=== PATIENT | female | born 1980 | race Caucasian/White ===

== ENCOUNTER 2024-07-26 16:28 | Inpatient (IN) | payer OTHER, SELFPAY ==
--- OUTSIDE RECORDS SUMMARY | 2024-07-26 16:34 | XMS_ITS | Encounter Summary ---
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 Name Role Phone Physician, No Pcp Primary Care Provider Unavaila ble Reason for Visit * Reason Comments Suicidal Paranoid, additory h allucinations, si/snorted 10 bags of fentanyl Encounter Details Date Type Department Care Team (Late st Contact Info) Description 07/25/2024 8:03 PM EST - 07/26/2024 4:05 PM EST Emergency [facility] Emergency [address] [place] [id number] Ayaz Posada MD [address] [place] [address] Polysubstance dependence including opioid type drug without complication, episodic abuse (CMS/HCC) (Primary Dx); Hopelessness; Housing insecurity; Hypokalemia Discharge Disposition: Another Health Care Institution Not Defined Social History Tobacco Use Types Packs/Day Years Used Date Smoking Tobacco: Never Assessed Sex and Gender Information Value Date Recorded Sex Assigned at Female 07/25/2024 8:22 PM EST Gender Identity Female 07/25/2024 8:22 PM EST Sexual Orientation Straight 07/25/2024 8: 22 PM EST Job Start Date Occupation Industry Not on file Not on file Not on file documented as of this encounter Last Filed Vital Signs Vital Sign Reading Time Taken Comments Blood Pressure 117/79 07/26/2024 4:01 PM EST Pulse 65 07/26/2024 4:01 PM EST Temperature 37.1 ??C (98.7 ??F) 07/26/2024 4:01 PM ES T Respiratory Rate 18 07/26/2024 4:01 PM EST Oxygen Saturation 100% 07/26/2024 4:01 PM EST Inhaled Oxygen Concentration - - Weight 63.5 kg (140 lb) 07/25/2024 8:06 PM EST Height 160 cm (5' 2.99 ) 07/25/2024 8:06 PM EST Body Mass Index 24.81 07/25/2024 8:06 PM EST documented in this encounter Functional Status Functional Status Response Date of Assess ment Are you deaf or do you have serious difficulty h earing? No 07/25/2024 Are you blind or do you have serious difficulty seeing, even when wearing glasses? No 07/25/2024 Do you have serious difficul ty walking or climbing stairs? No 07/25/2024 Do you have serious difficulty dressing or bathi ng? No 07/25/2024 Because of a physical, menta l, or emotional condition, do you have serious difficulty doing errands alone such as visiting the doctor? No 07/25/2024 Cognitive Status Response Date of Assessm ent Because of a physical, menta l, or emotional condition, do you have serious difficulty concentrating, remembering, or making decisions? (5 years old or older) No 07/25/2024 documented as of this encounter Medications at Time of Discharge Medication Sig Dispensed Refills Start Date End Date amLODIPine (NORVASC) 5 mg tablet Take 1 tablet (5 mg total) by mouth daily. 09/08/2022 cloNIDine (CATAPRES) 0.1 mg tablet Take 1 tablet (0.1 mg total) by mouth 3 (three) times a day if needed (anxiety). 07/12/2024 FLUoxetine (PROzac) 20 mg tablet 07/22/2024 hydrOXYzine HCL (ATARAX) 50 mg tablet Take 1 tablet (50 mg total) by mouth 3 (three) times a day. 06/29/2024 ibuprofen (ADVIL,MOTRIN) 600 mg tablet Take 1 tablet (600 mg total) by mouth every 6 hours as needed. 01/08/2021 methadone (DOLOPHINE) 10 mg tabletIndications:opioi d use disorder Take 120 mg by mouth 1 (one) time each day at the same time. Max Daily Amount: 120 mg polyethylene glycol (GoLYTELY) 236-22.74-6.74 -5.86 gram solution Drink 8 ounces every 20 minutes until you have a bowel movement then stop 4000 mL 05/30/2024 psyllium (METAMUCIL) 3.4 gram packet Take 1 packet by mouth 1 (one) time each day. 30 packet 05/30/2024 05/30/2025 traZODone (DESYREL) 50 mg tablet Take 1 tablet (50 mg total) by mouth at bedtime as needed for sleep. 50 to 100 mg prn 07/20/2024 documented as of this encounter Discharge Disposition Disposition Code Departure Means Destination Comment s Another Health Care Institution Not Defined documented in this encounter Progress Notes * Dania Knapp RN - 07/26/2024 12:40 PM EST Per - Please no visitors. * Jace Long - 07/26/2024 12:16 PM EST Patient has been accepted to [facility] for today. [facility] will call for [id number]. Patient is going to [facility] Accepting doctor is Olya Wong * Sd Benoit RN - 07/26/2024 9:17 AM EST Call to [facility] Methadone clinic to confirm methadone dosing. Spoke with Bindu DELA CRUZ who reports pt's last dose was yesterday 07/25/24 of 120mg methadone. ED provider notified. Sd Benoit RN 07/26/2418 * Jojo Ledbetter RN - 07/25/2024 8:10 PM EST [facility]- pt from [facility] office with section 12 for passive SI-snorted 10 bags of fentanyl. Ifsomething happens it happens Poor sleep and appetite. documented in this encounter Consult Notes * Alan Chamberlain - 07/25/2024 9:07 PM EST The patient is assessed in the community by N and found to be appropriate for inpatient, Bed-Search. Assessment will follow upon completion. documented in this encounter Plan of Treatment Not on file documented as of this encounter Procedures Procedure Name Priority Date/Time Associated Diagnosis Comments CBC WITH AUTO DIFFERENTIAL STAT 07/26/2024 1:36 PM EST CBC AND DIFFERENTIAL STAT 07/26/2024 1:36 PM EST BASIC METABOLIC PANEL STAT 07/26/2024 1:36 PM EST ECG 12-LEAD STAT 07/26/2024 1:17 PM EST DRUG ABUSE SCREEN 8A PANEL, URINE STAT 07/26/2024 12:20 AM EST BUPRENORPHINE SCREEN, URINE STAT 07/26/2024 12:20 AM EST METHADONE SCREEN, URINE STAT 07/26/2024 12:20 AM EST PHENCYCLIDINE, URINE STAT 07/26/2024 12:20 AM EST CBC WITH AUTO DIFFERENTIAL STAT 07/25/2024 8:52 PM EST CBC AND DIFFERENTIAL STAT 07/25/2024 8:52 PM EST MAGNESIUM Add-On 07/25/2024 8:52 PM EST ETHANOL STAT 07/25/2024 8:52 PM EST ACETAMINOPHEN LEVEL STAT 07/25/2024 8 :52 PM EST SALICYLATE LEVEL STAT 07/25/2024 8:52 PM EST COMPREHENSIVE METABOLIC PANEL STAT 07/25/2024 8:52 PM EST documented in this encounter Results * (ABNORMAL) Basic metabolic panel (07/26/2024 1:36 PM EST) Sodium 135 133 - 145 mmol/L LAB CHEMISTRY METHOD 07/26/2024 2:33 PM [facility] Potassium 3.9 3.5 - 5.5 mmol/L LAB CHEMISTRY METHOD 07/26/2024 2:33 PM [facility] Chloride 103 96 - 110 mmol/L LAB CHEMISTRY METHOD 07/26/2024 2:33 PM [facility] CO2 24 21 - 32 mmol/L LAB CHEMISTRY METHOD 07/26/2024 2:33 PM [facility] Anion Gap 8 3 - 11 LAB CHEMISTRY METHOD 07/26/2024 2:33 PM [facility] Glucose 145(H) 70 - 100 mg/dL LAB CHEMISTRY METHOD 07/26/2024 2:33 PM [facility] BUN 14 5 - 25 mg/dL LAB CHEMISTRY METHOD 07/26/2024 2:33 PM [facility] Creatinine 0.72 0.50 - 1.10 mg/dL LAB CHEMISTRY METHOD 07/26/2024 2:33 PM [facility] eGFR 108 >=60 mL/min/1. 73m2 LAB CHEMISTRY METHOD 07/26/2024 2:33 PM [facility] Comment:Calculation based on the??Chronic Kidney Disease Epidemiology Collaboration (CKD-EPI) equation refit??without adjustment for race. BUN/Creatinine Ratio 19.4 LAB CHEMISTRY METHOD 07/26/2024 2:33 PM [facility] Calcium 9.6 8.5 - 10.5 mg/dL LAB CHEMISTRY METHOD 07/26/2024 2:33 PM [facility] Blood Venous blood specimen / Unknown Venipuncture / Unknown 07/26/2024 1:36 PM EST 07/26/2024 1:55 PM EST Ayaz Posada MD LAB BLOOD ORDERABLES [facility] [address] [place] [address], * (ABNORMAL) CBC auto differential (07/26/2024 1:36 PM EST) WBC 7.7 4.8 - 10.8 K/mcL LAB HEMETOLOGY METHOD 07/26/2024 2:[address] [facility] RBC 4.40 3.80 - 4.80 M/mcL LAB HEMETOLOGY METHOD 07/26/2024 2:[address] [facility] Hemoglobin 13.2 11.5 - 16.0 g/dL LAB HEMETOLOGY METHOD 07/26/2024 2:12 PM [facility] Hematocrit 37.9 35.0 - 47.0 % LAB HEMETOLOGY METHOD 07/26/2024 2:[address] [facility] MCV 85.9 79.0 - 98.0 FL LAB HEMETOLOGY METHOD 07/26/2024 2:[address] [facility] MCH 29.9 27.0 - 32.0 pcg LAB HEMETOLOGY METHOD 07/26/2024 2:[address] [facility] MCHC 34.8 32.0 - 37.0 g/dL LAB HEMETOLOGY METHOD 07/26/2024 2:[address] [facility] RDW 13.2 11.0 - 15.0 % LAB HEMETOLOGY METHOD 07/26/2024 2:12 PM [facility] Platelets 361 130 - 400 K/mcL LAB HEMETOLOGY METHOD 07/26/2024 2:12 PM [facility] MPV 9.4 7.0 - 11.0 FL LAB HEMETOLOGY METHOD 07/26/2024 2:12 PM [facility] NRBC 0.0 <1.0 % LAB HEMETOLOGY METHOD 07/26/2024 2:12 PM [facility] NRBC Absolute 0.00 <0.10 K/mcL LAB HEMETOLOGY METHOD 07/26/2024 2:12 PM [facility] Neutrophils Relative 54.1 % LAB HEMETOLOGY METHOD 07/26/2024 2:12 PM [facility] Lymphocytes Relative 34.7 % LAB HEMETOLOGY METHOD 07/26/2024 2:12 PM [facility] Monocytes Relative 8.3 % LAB HEMETOLOGY METHOD 07/26/2024 2:12 PM [facility] Eosinophils Relative 1.8 % LAB HEMETOLOGY METHOD 07/26/2024 2:12 PM [facility] Basophils Relative 0.4 % LAB HEMETOLOGY METHOD 07/26/2024 2:12 PM [facility] Immature Granulocytes Relative 0.7 % LAB HEMETOLOGY METHOD 07/26/2024 2:12 PM [facility] Neutrophils Absolute 4.16 1.50 - 7.00 K/mcL LAB HEMETOLOGY METHOD 07/26/2024 2:12 PM [facility] Lymphocytes Absolute 2.67 1.00 - 5.00 K/mcL LAB HEMETOLOGY METHOD 07/26/2024 2:12 PM [facility] Monocytes Absolute 0.64 0.20 - 1.00 K/mcL LAB HEMETOLOGY METHOD 07/26/2024 2:12 PM [facility] Eosinophils Absolute 0.14 0.00 - 0.50 K/mcL LAB HEMETOLOGY METHOD 07/26/2024 2:12 PM [facility] Basophils Absolute 0.03 0.00 - 0.20 K/mcL LAB HEMETOLOGY METHOD 07/26/2024 2:12 PM [facility] Immature Granulocytes Absolute 0.05(H) 0.00 - 0.03 K/[facility] LAB HEMETOLOGY METHOD 07/26/2024 2:[address] [facility] Blood Venous blood specimen / Unknown Venipuncture / Unknown 07/26/2024 1:36 PM EST 07/26/2024 1:55 PM EST Ayaz Posada MD LAB BLOOD ORDERABLES Performing Organization Address [facility] Co de Phone Number [facility] [address] [place] [address], * ECG 12 lead (07/26/2024 1:17 PM EST) Ventricular Rate ECG 67 BPM GEMUSE Atrial Rate 67 BPM GEMUSE P-R Interval 140 ms GEMUSE QRS Duration 76 ms GEMUSE Q-T Interval 416 ms GEMUSE QTc 439 ms GEMUSE P Wave [place] 41 degrees GEMUSE R [place] 62 degrees GEMUSE T [place] 37 degrees GEMUSE ECG Interpretation Normal sinus rhythm Possible Left atrial enlargement Borderline ECG When compared with ECG of 15-JUL-2021 23:18, No significant change was found Confirmed by Trenton ROBERTS JAMES ([id number]) on 07/26/2024 2:40:22 PM GEMUSE 07/26/2024 1:17 PM EST 07/26/2024 2:40 PM EST Ayaz Posada MD ECG ORDERABLES Performing Organization Address [facility] de Phone Number GEMUSE * (ABNORMAL) Methadone, urine (07/26/2024 12:20 AM EST) Methadone Screen, Urine Positive (A) Negative LAB CHEMISTRY METHOD 07/26/2024 1:[address] [facility] Comment: Assay cutoff 300 ng/mL Semi-quantitative assay for screening purposes only. Unconfirmed screening result should not be used for non-medical purposes. *ALTERNATE METHOD CONFIRMATION DONE UPON REQUEST ONLY* Urine Urine specimen obtained by clean catch procedure / Unknown Non-blood Collection / Unknown 07/26/2024 12:20 AM EST 07/26/2024 12:28 AM EST Ayaz Posada MD LAB URINE ORDERABLES Performing Organization Address [facility]/ZIP Co de Phone Number [facility] [address] [place] [address], [place] [phone] * Phencyclidine, urine (07/26/2024 12:20 AM EST) PCP Scrn, Ur Negative Negative LAB CHEMISTRY METHOD 07/26/2024 1:[address] [facility] Comment: Assay cutoff 25 ng/mL Semi-quantitative assay for screening purposes only. Unconfirmed screening result should not be used for non-medical purposes. *ALTERNATE METHOD CONFIRMATION DONE UPON REQUEST ONLY* Urine Urine specimen obtained by clean catch procedure / Unknown Non-blood Collection / Unknown 07/26/2024 12:20 AM EST 07/26/2024 12:28 AM EST Ayaz Posada MD LAB URINE ORDERABLES Performing Organization Address [facility]/ZIP Co de Phone Number [facility] [address] [place] [address], [place] [phone] * Buprenorphine screen, urine (07/26/2024 12:20 AM EST) Buprenorphine Screen Urine Negative Negative LAB CHEMISTRY METHOD 07/26/2024 1:[address] [facility] Urine Urine specimen obtained by clean catch procedure / Unknown Non-blood Collection / Unknown 07/26/2024 12:20 AM EST 07/26/2024 12:[address] [facility] - 07/26/2024 1:07 AM EST Assay cutoff 5 ng/mL Semi-quantitative assay for screening purposes only. Unconfirmed screening result should not be used for non-medical purposes. *ALTERNATE METHOD CONFIRMATION DONE UPON REQUEST ONLY* Ayaz Posada MD LAB URINE ORDERABLES [facility] [address] [place] [address], * (ABNORMAL) Drug abuse screen 8a panel, urine (07/26/2024 12:20 AM EST) Amphetamine Screen, Ur Negative Negative LAB CHEMISTRY METHOD 1:20 AM [facility] Comment:Certain OTC medicati ons containing ephedrine, phenylephrine, pseudoephedrine and phenylpropanolamine can cause false positive results. Barbiturate Screen, Ur Negative Negative LAB CHEMISTRY METHOD 1:20 AM [facility] Benzodiazepine Screen, Ur Negative Negative LAB CHEMISTRY METHOD 1:20 AM [facility] Cocaine Screen, Ur Positive(A ) Negative LAB CHEMISTRY METHOD 1:20 AM [facility] Opiate Screen, Ur Positive(A ) Negative LAB CHEMISTRY METHOD 1:20 AM [facility] Cannabinoid (THC) Screen, Ur Positive(A ) Negative LAB CHEMISTRY METHOD 1:20 AM [facility] Comment:Specimens from patie nts taking pantoprazole sodium (Protonix) have been shown to produce false positive results. Oxycodone Screen, Ur Negative Negative LAB CHEMISTRY METHOD 1:20 AM [facility] Fentanyl, Ur Positive(A ) Negative LAB CHEMISTRY METHOD 1:20 AM [facility] Urine Urine specimen obtained by clean catch procedure / Unknown Non-blood Collection / Unknown 07/26/2024 12:20 AM EST 07/26/2024 12:28 AM EST [facility] - 07/26/2024 1:20 AM EST Assay cutoffs: Amphetamines ? 1000 ng/mL Barbiturates ?200 ng/mL Benzodiazepines ?? 200 ng/mL Cocaine ? 300 ng/mL Fentanyl ?1 ng/mL Opiates ? 300 ng/mL Oxycodone ? 100 ng/mL THC ?50 ng/mL Semi-quantitative assay for screening purposes only. Unconfirmed screening result should not be used for non-medical purposes. *ALTERNATE METHOD CONFIRMATION DONE UPON REQUEST ONLY* Ayaz Posada MD LAB URINE ORDERABLES Performing Organization Address [facility]/ZIP Co de Phone Number [facility] [address] [place] [address], * Magnesium (07/25/2024 8:52 PM EST) [facility] Magnesium 2.0 1.9 - 2.6 mg/dL LAB CHEMISTRY METHOD 07/25/2024 11:[address] [facility] Blood Venous blood specimen / Unknown Venipuncture / Unknown 07/25/2024 8:52 PM EST 07/25/2024 8:59 PM EST Bubba CAPELLAN LAB BLOOD ORDERAB LES Performing Organization Address [facility]/ZIP Co de Phone Number [facility] [address] [place] [address], * (ABNORMAL) CBC auto differential (07/25/2024 8:52 PM EST) WBC 6.7 4.8 - 10.8 K/mcL LAB HEMETOLOGY METHOD 07/25/2024 9:[address] [facility] RBC 3.70(L) 3.80 - 4.80 M/mcL LAB HEMETOLOGY METHOD 07/25/2024 9:[address] [facility] Hemoglobin 11.3(L) 11.5 - 16.0 g/dL LAB HEMETOLOGY METHOD 07/25/2024 9:04 PM [facility] Hematocrit 32.3(L) 35.0 - 47.0 % LAB HEMETOLOGY METHOD 07/25/2024 9:04 PM [facility] MCV 86.6 79.0 - 98.0 FL LAB HEMETOLOGY METHOD 07/25/2024 9:04 PM [facility] MCH 30.3 27.0 - 32.0 pcg LAB HEMETOLOGY METHOD 07/25/2024 9:04 PM [facility] MCHC 35.0 32.0 - 37.0 g/dL LAB HEMETOLOGY METHOD 07/25/2024 9:04 PM [facility] RDW 13.2 11.0 - 15.0 % LAB HEMETOLOGY METHOD 07/25/2024 9:04 PM [facility] Platelets 323 130 - 400 K/mcL LAB HEMETOLOGY METHOD 07/25/2024 9:04 PM [facility] MPV 9.2 7.0 - 11.0 FL LAB HEMETOLOGY METHOD 07/25/2024 9:04 PM [facility] NRBC 0.0 <1.0 % LAB HEMETOLOGY METHOD 07/25/2024 9:04 PM [facility] NRBC Absolute 0.00 <0.10 K/mcL LAB HEMETOLOGY METHOD 07/25/2024 9:04 PM [facility] Neutrophils Relative 39.3 % LAB HEMETOLOGY METHOD 07/25/2024 9:04 PM [facility] Lymphocytes Relative 47.7 % LAB HEMETOLOGY METHOD 07/25/2024 9:04 PM [facility] Monocytes Relative 9.5 % LAB HEMETOLOGY METHOD 07/25/2024 9:04 PM [facility] Eosinophils Relative 2.8 % LAB HEMETOLOGY METHOD 07/25/2024 9:[address] [facility] Basophils Relative 0.4 % LAB HEMETOLOGY METHOD 07/25/2024 9:04 PM [facility] Immature Granulocytes Relative 0.3 % LAB HEMETOLOGY METHOD 07/25/2024 9:04 PM [facility] Neutrophils Absolute 2.64 1.50 - 7.00 K/mcL LAB HEMETOLOGY METHOD 07/25/2024 9:[address] [facility] Lymphocytes Absolute 3.21 1.00 - 5.00 K/mcL LAB HEMETOLOGY METHOD 07/25/2024 9:04 PM [facility] Monocytes Absolute 0.64 0.20 - 1.00 K/mcL LAB HEMETOLOGY METHOD 07/25/2024 9:04 PM [facility] Eosinophils Absolute 0.19 0.00 - 0.50 K/mcL LAB HEMETOLOGY METHOD 07/25/2024 9:[address] [facility] Basophils Absolute 0.03 0.00 - 0.20 K/mcL LAB HEMETOLOGY METHOD 07/25/2024 9:04 PM [facility] Immature Granulocytes Absolute 0.02 0.00 - 0.03 K/mcL LAB HEMETOLOGY METHOD 07/25/2024 9:04 PM [facility] Blood Venous blood specimen / Unknown Venipuncture / Unknown 07/25/2024 8:52 PM EST 07/25/2024 8:59 PM EST Ayaz Posada MD LAB BLOOD ORDERABLES [facility] [address] [place] [address], * (ABNORMAL) Salicylate level (07/25/2024 8:52 PM EST) Salicylate Level <1.7(L) 2.0 - 29.0 mg/dL LAB CHEMISTRY METHOD 07/25/2024 9:[address] [facility] Blood Venous blood specimen / Unknown Venipuncture / Unknown 07/25/2024 8:52 PM EST 07/25/2024 8:59 PM EST Ayaz Posada MD LAB BLOOD ORDERABLES Performing Organization Address City/[facility]/ZIP Co de Phone Number [facility] [address] [place] [address], [place] [phone] * (ABNORMAL) Acetaminophen level (07/25/2024 8:52 PM EST) Acetaminophen Level 8.9(L) 10.0 - 30.0 mcg/mL LAB CHEMISTRY METHOD 07/25/2024 9:[address] [facility] Blood Venous blood specimen / Unknown Venipuncture / Unknown 07/25/2024 8:52 PM EST 07/25/2024 8:59 PM EST Ayaz Posada MD LAB BLOOD ORDERABLES Performing Organization Address City/[facility]/ZIP Co de Phone Number [facility] [address] [place] [address], [place] [phone] * Ethanol (07/25/2024 8:52 PM EST) Ethanol Level 4 0 - 10 mg/dL LAB CHEMISTRY METHOD 07/25/2024 9:[address] [facility] Blood Venous blood specimen / Unknown Venipuncture / Unknown 07/25/2024 8:52 PM EST 07/25/2024 8:59 PM EST Ayaz Posada MD LAB BLOOD ORDERABLES Performing Organization Address City/[facility]/ZIP Co de Phone Number [facility] [address] [place] [address], [place] [phone] * (ABNORMAL) Comprehensive metabolic panel (07/25/2024 8:52 PM EST) [facility] Signature Sodium 138 133 - 145 mmol/L LAB CHEMISTRY METHOD 07/25/2024 9:46 PM [facility] Potassium 3.0(L) 3.5 - 5.5 mmol/L LAB CHEMISTRY METHOD 07/25/2024 9:46 PM [facility] Chloride 107 96 - 110 mmol/L LAB CHEMISTRY METHOD 07/25/2024 9:46 PM [facility] CO2 24 21 - 32 mmol/L LAB CHEMISTRY METHOD 07/25/2024 9:46 PM [facility] Anion Gap 7 3 - 11 LAB CHEMISTRY METHOD 07/25/2024 9:46 PM [facility] Glucose 91 70 - 100 mg/dL LAB CHEMISTRY METHOD 07/25/2024 9:46 PM [facility] BUN 12 5 - 25 mg/dL LAB CHEMISTRY METHOD 07/25/2024 9:46 PM [facility] Creatinine 0.59 0.50 - 1.10 mg/dL LAB CHEMISTRY METHOD 07/25/2024 9:46 PM [facility] eGFR 116 >=60 mL/min/1. 73m2 LAB CHEMISTRY METHOD 07/25/2024 9:46 PM [facility] Comment:Calculation based on the??Chronic Kidney Disease Epidemiology Collaboration (CKD-EPI) equation refit??without adjustment for race. BUN/Creatinine Ratio 20.3 LAB CHEMISTRY METHOD 07/25/2024 9:46 PM [facility] Calcium 8.3(L) 8.5 - 10.5 mg/dL LAB CHEMISTRY METHOD 07/25/2024 9:46 PM [facility] AST (SGOT) 15 10 - 42 unit/L LAB CHEMISTRY METHOD 07/25/2024 9:46 PM [facility] ALT (SGPT) 18 10 - 60 unit/L LAB CHEMISTRY METHOD 07/25/2024 9:[address] [facility] Alkaline Phosphatase 94 42 - 121 unit/L LAB CHEMISTRY METHOD 07/25/2024 9:[address] [facility] Total Protein 6.7 6.0 - 8.0 g/dL LAB CHEMISTRY METHOD 07/25/2024 9:[address] [facility] Albumin 3.8 3.2 - 5.0 g/dL LAB CHEMISTRY METHOD 07/25/2024 9:[address] [facility] Total Bilirubin 0.3 0.0 - 1.4 mg/dL LAB CHEMISTRY METHOD 07/25/2024 9:46 PM [facility] Blood Venous blood specimen / Unknown Venipuncture / Unknown 07/25/2024 8:52 PM EST 07/25/2024 8:59 PM EST Ayaz Posada MD LAB BLOOD ORDERABLES [facility] [address] [place] [address], documented in this encounter Visit Diagnoses Diagnosis Polysubstance dependence including opioid type drug without complication, episodic abuse (CMS/HCC)- Primary Hopelessness Housing insecurity Hypokalemia Hypopotassemia documented in this encounter Administered Medications Active Administered Medications - up to 3 most recent administrations Medication Order MAR Action Action Date Dose Rate Site amLODIPine (NORVASC) tablet 5 mg 5 mg, oral, Daily, First dose on Thu07/26/24 at 1035 Given 07/26/2024 11:00 AM EST 5 mg cloNIDine (CATAPRES) tablet 0.1 mg 0.1 mg, oral, Every 8 hours scheduled, First dose on Thu07/26/24 at 1035 Given 07/26/2024 11:20 AM EST 0.1 mg FLUoxetine (PROzac) capsule 20 mg 20 mg, oral, Daily, First dose on Thu07/26/24 at 1035 Given 07/26/2024 11:20 AM EST 20 mg hydrOXYzine pamoate (VISTARIL) capsule 25 mg 25 mg, oral, 3 times daily, First dose on Thu07/26/24 at 1035 Given 07/26/2024 2:02 PM EST 25 mg Given 07/26/2024 11:20 AM EST 25 mg potassium chloride (KLOR-CON M20) CR tablet 20 mEq 20 mEq, oral, 2 times daily, First dose on Thu07/26/24 at 0900, For 3 days, Tablet may be swallowed whole (do not crush/chew/suck on) OR broken in half and each half swallowed separately OR dissolved (whole tablet) in ~4 ounces of water (allow ~2 minutes to dissolve, stir well and administer immediately). Given 07/26/2024 8:31 AM EST 20 mEq Inactive Administered Medications - up to 3 most recent administrations Medication Order MAR Action Action Date Dose Rate Site acetaminophen (TYLENOL) tablet 1,000 mg 1,000 mg, oral, Once, On Thu07/26/24 at 0808, For 1 dose, PRN for Pain or Fever Given 07/26/2024 8:30 AM EST 1,000 mg amLODIPine (NORVASC) tablet 5 mg 5 mg, oral, Once, On Thu07/26/24 at 0457, For 1 dose Given 07/26/2024 5:00 AM EST 5 mg cloNIDine (CATAPRES) tablet 0.1 mg 0.1 mg, oral, Once, On Thu07/26/24 at 0457, For 1 dose Given 07/26/2024 5:01 AM EST 0.1 mg ibuprofen (ADVIL,MOTRIN) tablet 600 mg 600 mg, oral, Once, On Thu07/26/24 at 0437, For 1 dose, Administer with food or milk to decrease GI upset Given 07/26/2024 4:41 AM EST 600 mg methadone (METHADOSE) dispersible tablet 120 mg 120 mg, oral, Once, On Thu07/26/24 at 0958, For 1 dose, Disperse total dose in ~120 mL of water, orange juice, or other acidic fruit beverage prior to administration; if insoluble excipients remain and do not entirely dissolve, add a small amount of liquid to cup and administer remaining mixture. Do not chew or swallow tablet before dispersing in liquid. Given 07/26/2024 10:07 AM EST 120 mg ondansetron ODT (ZOFRAN-ODT) disintegrating tablet 4 mg 4 mg, oral, Once, On Thu07/25/24 at 2340, For 1 dose Given 07/25/2024 11:49 PM EST 4 mg potassium chloride (KLOR-CON M20) CR tablet 40 mEq 40 mEq, oral, Once, On Thu07/25/24 at 2335, For 1 dose, Tablet may be swallowed whole (do not crush/chew/suck on) OR broken in half and each half swallowed separately OR dissolved (whole tablet) in ~4 ounces of water (allow ~2 minutes to dissolve, stir well and administer immediately). Given 07/25/2024 11:49 PM EST 40 mEq documented in this encounter Historical Medications * This list may reflect changes made after this encounter. Medication Sig Dispensed Refills Start Date End Date traZODone (DESYREL) 50 mg tablet Take 1 tablet (50 mg total) by mouth at bedtime as needed for sleep. 50 to 100 mg prn 07/20/2024 ibuprofen (ADVIL,MOTRIN) 600 mg tablet Take 1 tablet (600 mg total) by mouth every 6 hours as needed. 01/08/2021 hydrOXYzine HCL (ATARAX) 50 mg tablet Take 1 tablet (50 mg total) by mouth 3 (three) times a day. 06/29/2024 cloNIDine (CATAPRES) 0.1 mg tablet Take 1 tablet (0.1 mg total) by mouth 3 (three) times a day if needed (anxiety). 07/12/2024 amLODIPine (NORVASC) 5 mg tablet Take 1 tablet (5 mg total) by mouth daily. 09/08/2022 FLUoxetine (PROzac) 20 mg tablet 07/22/2024 methadone (DOLOPHINE) 10 mg tabletIndications:opioid use disorder Take 120 mg by mouth 1 (one) time each day at the same time. Max Daily Amount: 120 mg added in this encounter Active and Recently Administered Medications Times are shown in EST. Scheduled Medication Order 07/24/2024 07/25/2024 07/26/2024 acetaminophen (TYLENOL) tablet 1,000 mg (COMPLETED) 1,000 mg, oral, Once, On Thu07/26/24 at 0808, For 1 dose, PRN for Pain or Fever 0830 (Given - Provid er: Sd Benoit RN) amLODIPine (NORVASC) tablet 5 mg (COMPLETED) 5 mg, oral, Once, On Thu07/26/24 at 0457, For 1 dose 0500 (Given - Provid er: Jojo Ledbetter RN) amLODIPine (NORVASC) tablet 5 mg 5 mg, oral, Daily, First dose on Thu07/26/24 at 1035 1100 (Given - Provid er: Dania Knapp RN) cloNIDine (CATAPRES) tablet 0.1 mg (COMPLETED) 0.1 mg, oral, Once, On Thu07/26/24 at 0457, For 1 dose 0501 (Given - Provid er: Jojo Ledbetter RN) cloNIDine (CATAPRES) tablet 0.1 mg 0.1 mg, oral, Every 8 hours scheduled, First dose on Thu07/26/24 at 1035 1120 (Given - Provid er: Dania Knapp RN)2200 (Due) FLUoxetine (PROzac) capsule 20 mg 20 mg, oral, Daily, First dose on Thu07/26/24 at 1035 1120 (Given - Provid er: Dania Knapp RN) hydrOXYzine pamoate (VISTARIL) capsule 25 mg 25 mg, oral, 3 times daily, First dose on Thu07/26/24 at 1035 1120 (Given - Provid er: Dania Knapp RN)1402 (Given - Provider: Dania Knapp RN)2100 (Due) ibuprofen (ADVIL,MOTRIN) tablet 600 mg (COMPLETED) 600 mg, oral, Once, On Thu07/26/24 at 0437, For 1 dose, Administer with food or milk to decrease GI upset 0441 (Given - Provid er: Jojo Ledbetter RN) methadone (METHADOSE) dispersible tablet 120 mg (COMPLETED) 120 mg, oral, Once, On Thu07/26/24 at 0958, For 1 dose, Disperse total dose in ~120 mL of water, orange juice, or other acidic fruit beverage prior to administration; if insoluble excipients remain and do not entirely dissolve, add a small amount of liquid to cup and administer remaining mixture. Do not chew or swallow tablet before dispersing in liquid. 1007 (Given - Provid er: Sd Benoit RN) ondansetron ODT (ZOFRAN-ODT) disintegrating tablet 4 mg (COMPLETED) 4 mg, oral, Once, On Thu07/25/24 at 2340, For 1 dose 2349 (Given - Provider: Jojo Ledbetter RN) potassium chloride (KLOR-CON M20) CR tablet 20 mEq 20 mEq, oral, 2 times daily, First dose on Thu07/26/24 at 0900, For 3 days, Tablet may be swallowed whole (do not crush/chew/suck on) OR broken in half and each half swallowed separately OR dissolved (whole tablet) in ~4 ounces of water (allow ~2 minutes to dissolve, stir well and administer immediately). 0831 (Given - Provid er: Sd Benoit RN)2100 (Due) potassium chloride (KLOR-CON M20) CR tablet 40 mEq (COMPLETED) 40 mEq, oral, Once, On Thu07/25/24 at 2335, For 1 dose, Tablet may be swallowed whole (do not crush/chew/suck on) OR broken in half and each half swallowed separately OR dissolved (whole tablet) in ~4 ounces of water (allow ~2 minutes to dissolve, stir well and administer immediately). 2349 (Given - Provider: Jojo Ledbetter RN) documented in this encounter Orders Medications Ordered That Ethan ht Not Have Been Administered Count Last Ordered Date First Ordered Date methadone (DOLOPHINE) tablet 120 mg 1 07/26 ondansetron (PF) (ZOFRAN) injection 4 mg 1 07/25/2024 Diet Count Last Ordered Date First Orde red Date ADULT DIET 1 07/26/2024 Consult Count Last Ordered Date First Orde red Date IP CONSULT TO TREE DRILLER 1 07/25/2024 Precaution Count Last Ordered Date First Orde red Date SUICIDE PRECAUTIONS 1 07/25/2024 documented in this encounter Care Teams Production Line Solderer Relationship Specialty Start Date End Date Physician, No Pcp PCP - General 07/25/24 documented as of this encounter
--- OUTSIDE RECORDS SUMMARY | 2024-07-26 16:34 | XMS_ITS | Continuity of Care Document ---
Author Organization [facility] Address [address] [place] [address] Phone Care Team Providers Care Lift Builder Whole Name Role Phone Services, Enabling Unavailable Unavailable Procedures Procedure Date [facility] [place] Advance Directives Directive Yes / No Effective Date File Name No Information Encounters Encounter Description Practice Location Reason(s) For Visit Diagnoses Date Provider Providers Copied on Encounter Lew Rajput [facility], [address] [place] [address],[address], [place], [place], [id number], tel:[phone] Enabling Services No Information 3 Services Enabling. [address] [place], [address]. tel:[phone] Family History Family Member Type Diagnosis Age At Onset No Information Payers Payer name Insurance type Covered green party ID Authoriza tion(s) No Information Social History Type Description Quantity Date Captured Comments Sex Female Smoking Status No Information Chief Complaint And Reason For Visit No Information Reason For Referral Reason For Referral No Information History Of Present Illness Encounter Date Complaint History Of Prese nt Illness No Information Functional Status Date Functional Assessmen t No Information Instructions Date Instruction Additional Infor mation No Information Assessments Type Assessment Date No Information Patient Care Teams Name Effective Dates (start - stop) Status Members No Information
--- OUTSIDE RECORDS SUMMARY | 2024-07-26 16:34 | XMS_ITS | Clinical Summary ---
Author Organization [facility] Address [address] [place] [address] Phone Care Team Providers Care Brick Molder Hand Name Role Phone Physician, No Pcp Primary Care Provider Unavaila ble Allergies No known active allergies Medications Medication Sig Dispensed Refills Start Date End Date Status polyethylene glycol (GoLYTELY) 236-22.74-6.74 -5.86 gram solution Drink 8 ounces every 20 minutes until you have a bowel movement then stop 4000 mL 05/30/2024 Active psyllium (METAMUCIL) 3.4 gram packet Take 1 packet by mouth 1 (one) time each day. 30 packet 05/30/2024 05/30/2025 Active methadone (DOLOPHINE) 10 mg tabletIndications:o pioid use disorder Take 120 mg by mouth 1 (one) time each day at the same time. Max Daily Amount: 120 mg Active FLUoxetine (PROzac) 20 mg tablet 07/22/2024 Active amLODIPine (NORVASC) 5 mg tablet Take 1 tablet (5 mg total) by mouth daily. 09/08/2022 Active cloNIDine (CATAPRES) 0.1 mg tablet Take 1 tablet (0.1 mg total) by mouth 3 (three) times a day if needed (anxiety). 07/12/2024 Active hydrOXYzine HCL (ATARAX) 50 mg tablet Take 1 tablet (50 mg total) by mouth 3 (three) times a day. 06/29/2024 Active ibuprofen (ADVIL,MOTRIN) 600 mg tablet Take 1 tablet (600 mg total) by mouth every 6 hours as needed. 01/08/2021 Active traZODone (DESYREL) 50 mg tablet Take 1 tablet (50 mg total) by mouth at bedtime as needed for sleep. 50 to 100 mg prn 07/20/2024 Active Encounters Date Type Department Care Team Description 07/25/2024 8:03 PM EST - 07/26/2024 4:05 PM EST Emergency [facility] [address] [place] [id number] Ayaz Posada MD Polysubstance dependence including opioid type drug without complication, episodic abuse (CMS/HCC) (Primary Dx); Hopelessness; Housing insecurity; Hypokalemia Discharge Disposition: Another Health Care Institution Not Defined 05/30/2024 8:49 AM EST - 05/30/2024 10:14 AM EST Emergency [facility] Emergency [address] [place] [id number] Amilcar Kauffman MD Slow transit constipation (Primary Dx) Discharge Disposition: Home or Self Care from Last 3 Months Medical History Medical History Date Comments Hypertension Social History Tobacco Use Types Packs/Day Years Used Date Smoking Tobacco: Never Assessed Sex and Gender Information Value Date Recorded Sex Assigned at Female 07/25/2024 8:22 PM EST Gender Identity Female 07/25/2024 8:22 PM EST Sexual Orientation Straight 07/25/2024 8: 22 PM EST Job Start Date Occupation Industry Not on file Not on file Not on file Obstetrics History Last Filed Vital Signs Vital Sign Reading [...] Mass Index 24.81 07/25/2024 8:06 PM EST Plan of Treatment Health Maintenance Due Date Last Done Comments Breast Cancer Screening 1982 DTaP,Tdap,and Td Vaccines (1 - Tdap) 2001 Hepatitis A Vaccines (1 of 2 - Risk 2-dose series) 2001 Hepatitis B Vaccines (1 of 3 - 19+ 3-dose series) 2001 Cervical Cancer Screening: Pap Smear 12/03/2003 Pneumococcal Vaccine: Pediatrics (0 to 5 Years) and At-Risk Patients (6 to 64 Years) (2 of 2 - PCV) 04/20/2021 04/20/2020 Cholesterol Screening (Lipid Panel) 05/21/2022 HIV Screening 05/21/2022 Social Influencers of Health Screening 05/21/2022 Depression Screening 01/23/2023 01/23/2022 COVID-19 Vaccine ( season) 2024 06/11/2022, 03/27/2021 Influenza Vaccine (#1) 2024 04/20/2020 Hypertension/CHF/CAD Annual BMP Blood Test 07/26/2025 07/26/2024, 07/25/2024, 05/29/2024, Additional history exists Hepatitis C Screening Completed 03/05/2021 HIB Vaccines Aged Out No longer eligi ble based on patient's age to complete this topic HPV Vaccines Aged Out No longer eligi ble based on patient's age to complete this topic IPV Vaccines Aged Out No longer eligi ble based on patient's age to complete this topic MMR Vaccines Aged Out No longer eligi ble based on patient's age to complete this topic Meningococcal ACWY Vaccine Aged Out N o longer eligible based on patient's age to complete this topic RSV Immunization Patients Under 20 months Aged Out No longer eligible based on patient's age to complete this topic Varicella Vaccines Aged Out No longer eligible based on patient's age to complete this topic Procedures Procedure Name Priority Date/Time Associated Diagnosis Comments BASIC METABOLIC PANEL STAT 07/26/2024 1:36 PM EST CBC WITH AUTO DIFFERENTIAL STAT 07/26/2024 1:36 PM EST CBC AND DIFFERENTIAL STAT 07/26/2024 1:36 PM EST ECG 12-LEAD STAT 07/26/2024 1:17 PM EST METHADONE SCREEN, URINE STAT 07/26/2024 12:20 AM EST PHENCYCLIDINE, URINE STAT 07/26/2024 12:20 AM EST BUPRENORPHINE SCREEN, URINE STAT 07/26/2024 12:20 AM EST DRUG ABUSE SCREEN 8A PANEL, URINE STAT 07/26/2024 12:20 AM EST MAGNESIUM Add-On 07/25/2024 8:52 PM EST CBC WITH AUTO DIFFERENTIAL STAT 07/25/2024 8:52 PM EST SALICYLATE LEVEL STAT 07/25/2024 8:52 PM EST ACETAMINOPHEN LEVEL STAT 07/25/2024 8 :52 PM EST ETHANOL STAT 07/25/2024 8:52 PM EST COMPREHENSIVE METABOLIC PANEL STAT 07/25/2024 8:52 PM EST CBC AND DIFFERENTIAL STAT 07/25/2024 8:52 PM EST POC , URINE DIAGNOSTIC STAT 05/30/2024 5:48 AM EST VIEYRA URINE CULTURE TUBE STAT 05/29/2024 5:44 PM EST URINALYSIS WITH REFLEX MICROSCOPIC AND CULTURE STAT 05/29/2024 5:44 PM EST URINALYSIS WITH REFLEX MICROSCOPIC AND CULTURE STAT 05/29/2024 5:44 PM EST CBC WITH AUTO DIFFERENTIAL STAT 05/29/2024 4:14 PM EST COMPREHENSIVE METABOLIC PANEL STAT 05/29/2024 4:14 PM EST CBC AND DIFFERENTIAL STAT 05/29/2024 4:14 PM EST from Last 3 Months Results * (ABNORMAL) CBC auto differential (07/26/2024 1:36 PM EST) Only the most recent of3 resultswithin the time period is included. [facility] WBC 7.7 4.8 - 10.8 K/mcL LAB HEMETOLOGY METHOD 07/26/2024 2:12 PM [facility] RBC 4.40 3.80 - 4.80 M/mcL LAB HEMETOLOGY METHOD 07/26/2024 2:12 PM [facility] Hemoglobin 13.2 11.5 - 16.0 g/dL LAB HEMETOLOGY METHOD 07/26/2024 2:12 PM [facility] Hematocrit 37.9 35.0 - 47.0 % LAB HEMETOLOGY METHOD 07/26/2024 2:12 PM [facility] MCV 85.9 79.0 - 98.0 FL LAB HEMETOLOGY METHOD 07/26/2024 2:12 PM [facility] MCH 29.9 27.0 - 32.0 pcg LAB HEMETOLOGY METHOD 07/26/2024 2:12 PM [facility] MCHC 34.8 32.0 - 37.0 g/dL LAB HEMETOLOGY METHOD 07/26/2024 2:12 PM [facility] RDW 13.2 11.0 - 15.0 % LAB HEMETOLOGY METHOD 07/26/2024 2:12 PM [facility] Platelets 361 130 - 400 K/mcL LAB HEMETOLOGY METHOD 07/26/2024 2:12 PM [facility] MPV 9.4 7.0 - 11.0 FL LAB HEMETOLOGY METHOD 07/26/2024 2:12 PM [facility] NRBC 0.0 <1.0 % LAB HEMETOLOGY METHOD 07/26/2024 2:12 PM [facility] NRBC Absolute 0.00 <0.10 K/mcL LAB HEMETOLOGY METHOD 07/26/2024 2:12 PM [facility] Neutrophils Relative 54.1 % LAB HEMETOLOGY METHOD 07/26/2024 2:12 PM [facility] Lymphocytes Relative 34.7 % LAB HEMETOLOGY METHOD 07/26/2024 2:12 PM [facility] Monocytes Relative 8.3 % LAB HEMETOLOGY METHOD 07/26/2024 2:12 PM [facility] Eosinophils Relative 1.8 % LAB HEMETOLOGY METHOD 07/26/2024 2:12 PM [facility] Basophils Relative 0.4 % LAB HEMETOLOGY METHOD 07/26/2024 2:12 PM [facility] Immature Granulocytes Relative 0.7 % LAB HEMETOLOGY METHOD 07/26/2024 2:12 PM [facility] Neutrophils Absolute 4.16 1.50 - 7.00 K/mcL LAB HEMETOLOGY METHOD 07/26/2024 2:12 PM [facility] Lymphocytes Absolute 2.67 1.00 - 5.00 K/mcL LAB HEMETOLOGY METHOD 07/26/2024 2:12 PM [facility] Monocytes Absolute 0.64 0.20 - 1.00 K/mcL LAB HEMETOLOGY METHOD 07/26/2024 2:12 PM [facility] Eosinophils Absolute 0.14 0.00 - 0.50 K/mcL LAB HEMETOLOGY METHOD 07/26/2024 2:12 PM [facility] Basophils Absolute 0.03 0.00 - 0.20 K/mcL LAB HEMETOLOGY METHOD 07/26/2024 2:12 PM [facility] Immature Granulocytes Absolute 0.05(H) 0.00 - 0.03 K/mcL LAB HEMETOLOGY METHOD 07/26/2024 2:12 PM [facility] Blood Venous blood specimen / Unknown Venipuncture / Unknown 07/26/2024 1:36 PM EST 07/26/2024 1:55 PM EST Ayaz Posada MD LAB BLOOD ORDERABLES [facility] [address] [place] [address], * (ABNORMAL) Basic metabolic panel (07/26/2024 1:36 PM EST) Sodium 135 133 - 145 mmol/L LAB CHEMISTRY METHOD 07/26/2024 2:33 PM EST [facility] Potassium 3.9 3.5 - 5.5 mmol/L LAB CHEMISTRY METHOD 07/26/2024 2:33 PM [facility] Chloride 103 96 - 110 mmol/L LAB CHEMISTRY METHOD 07/26/2024 2:33 PM [facility] CO2 24 21 - 32 mmol/L LAB CHEMISTRY METHOD 07/26/2024 2:33 PM [facility] Anion Gap 8 3 - 11 LAB CHEMISTRY METHOD 07/26/2024 2:33 PM [facility] Glucose 145(H) 70 - 100 mg/dL LAB CHEMISTRY METHOD 07/26/2024 2:33 PM [facility] BUN 14 5 - 25 mg/dL LAB CHEMISTRY METHOD 07/26/2024 2:33 PM [facility] Creatinine 0.72 0.50 - 1.10 mg/dL LAB CHEMISTRY METHOD 07/26/2024 2:33 PM [facility] eGFR 108 >=60 mL/min/1. 73m2 LAB CHEMISTRY METHOD 07/26/2024 2:33 PM [facility] Comment:Calculation based on the??Chronic Kidney Disease Epidemiology Collaboration (CKD-EPI) equation refit??without adjustment for race. BUN/Creatinine Ratio 19.4 LAB CHEMISTRY METHOD 07/26/2024 2:33 PM [facility] Calcium 9.6 8.5 - 10.5 mg/dL LAB CHEMISTRY METHOD 07/26/2024 2:33 PM EST [facility] Blood Venous blood specimen / Unknown Venipuncture / Unknown 07/26/2024 1:36 PM EST 07/26/2024 1:55 PM EST Ayaz Posada MD LAB BLOOD ORDERABLES Performing Organization Address [facility] Co de Phone Number [facility] [address] [place] [address], * ECG 12 lead (07/26/2024 1:17 PM EST) Ventricular Rate ECG 67 BPM GEMUSE Atrial Rate 67 BPM GEMUSE P-R Interval 140 ms GEMUSE QRS Duration 76 ms GEMUSE Q-T Interval 416 ms GEMUSE QTc 439 ms GEMUSE P Wave [place] 41 degrees GEMUSE R [place] 62 degrees GEMUSE T [place] 37 degrees GEMUSE ECG Interpretation Normal sinus rhythm Possible Left atrial enlargement Borderline ECG When compared with ECG of 15-JUL-2021 23:18, No significant change was found Confirmed by Trenton ROBERTS JAMES ([id number]) on 07/26/2024 2:40:22 PM GEMUSE 07/26/2024 1:17 PM EST 07/26/2024 2:40 PM EST Ayaz Posada MD ECG ORDERABLES Performing Organization Address [facility] de Phone Number GEMUSE * (ABNORMAL) Drug abuse screen 8a panel, urine (07/26/2024 12:20 AM EST) Amphetamine Screen, Ur Negative Negative LAB CHEMISTRY METHOD 1:20 AM EST [facility] Comment:Certain OTC medicati ons containing ephedrine, phenylephrine, pseudoephedrine and phenylpropanolamine can cause false positive results. Barbiturate Screen, Ur Negative Negative LAB CHEMISTRY METHOD 1:20 AM [facility] Benzodiazepine Screen, Ur Negative Negative LAB CHEMISTRY METHOD 5 1:20 AM [facility] Cocaine Screen, Ur Positive(A ) Negative LAB CHEMISTRY METHOD 5 1:20 AM [facility] Opiate Screen, Ur Positive(A ) Negative LAB CHEMISTRY METHOD 5 1:20 AM [facility] Cannabinoid (THC) Screen, Ur Positive(A ) Negative LAB CHEMISTRY METHOD 5 1:20 AM [facility] Comment:Specimens from patie nts taking pantoprazole sodium (Protonix) have been shown to produce false positive results. Oxycodone Screen, Ur Negative Negative LAB CHEMISTRY METHOD 5 1:20 AM [facility] Fentanyl, Ur Positive(A ) Negative LAB CHEMISTRY METHOD 5 1:20 AM [facility] Urine Urine specimen obtained by clean catch procedure / Unknown Non-blood Collection / Unknown 07/26/2024 12:20 AM EST 07/26/2024 12:[address] [facility] - 07/26/2024 1:20 AM EST [...] ONLY* Ayaz Posada MD LAB URINE ORDERABLES [facility] [address] [place] [address], [place] [phone] * Buprenorphine screen, urine (07/26/2024 12:20 AM EST) [facility] Buprenorphine Screen Urine Negative Negative LAB CHEMISTRY METHOD 07/26/2024 1:07 AM EST [facility] Urine Urine specimen obtained by clean catch procedure / Unknown Non-blood Collection / Unknown 07/26/2024 12:20 AM EST 07/26/2024 12:28 AM EST Narrative [facility] - 07/26/2024 1:07 AM EST Assay cutoff 5 ng/mL Semi-quantitative assay for screening purposes only. Unconfirmed screening result should not be used for non-medical purposes. *ALTERNATE METHOD CONFIRMATION DONE UPON REQUEST ONLY* Ayaz Posada MD LAB URINE ORDERABLES Performing Organization Address City/[facility]/ZIP Co de Phone Number [facility] [address] [place] [address], [place] [phone] * (ABNORMAL) Methadone, urine (07/26/2024 12:20 AM EST) [facility] Methadone Screen, Urine Positive (A) Negative LAB CHEMISTRY METHOD 07/26/2024 1:07 AM EST [facility] Comment: Assay cutoff 300 ng/mL Semi-quantitative assay for screening purposes only. Unconfirmed screening result should not be used for non-medical purposes. *ALTERNATE METHOD CONFIRMATION DONE UPON REQUEST ONLY* Urine Urine specimen obtained by clean catch procedure / Unknown Non-blood Collection / Unknown 07/26/2024 12:20 AM EST 07/26/2024 12:28 AM EST Ayaz Posada MD LAB URINE ORDERABLES [facility] [address] [place] [address], [place] [phone] * Phencyclidine, urine (07/26/2024 12:20 AM EST) PCP Scrn, Ur Negative Negative LAB CHEMISTRY METHOD 07/26/2024 1:07 AM EST [facility] Comment: Assay cutoff 25 ng/mL Semi-quantitative assay for screening purposes only. Unconfirmed screening result should not be used for non-medical purposes. *ALTERNATE METHOD CONFIRMATION DONE UPON REQUEST ONLY* Urine Urine specimen obtained by clean catch procedure / Unknown Non-blood Collection / Unknown 07/26/2024 12:20 AM EST 07/26/2024 12:28 AM EST Ayaz Posada MD LAB URINE ORDERABLES Performing Organization Address [facility]/ZIP Co de Phone Number [facility] [address] [place] [address], * Magnesium (07/25/2024 8:52 PM EST) [facility] Magnesium 2.0 1.9 - 2.6 mg/dL LAB CHEMISTRY METHOD 07/25/2024 11:55 PM EST [facility] Blood Venous blood specimen / Unknown Venipuncture / Unknown 07/25/2024 8:52 PM EST 07/25/2024 8:59 PM EST Bubba CAPELLAN LAB BLOOD ORDERAB LES Performing Organization Address [facility]/ZIP Co de Phone Number [facility] [address] [place] [address], * Ethanol (07/25/2024 8:52 PM EST) [facility] Ethanol Level 4 0 - 10 mg/dL LAB CHEMISTRY METHOD 07/25/2024 9:46 PM EST [facility] Blood Venous blood specimen / Unknown Venipuncture / Unknown 07/25/2024 8:52 PM EST 07/25/2024 8:59 PM EST Ayaz Posada MD LAB BLOOD ORDERABLES Performing Organization Address City/[facility]/ZIP Co de Phone Number [facility] [address] [place] [address], * (ABNORMAL) Acetaminophen level (07/25/2024 8:52 PM EST) Acetaminophen Level 8.9(L) 10.0 - 30.0 mcg/mL LAB CHEMISTRY METHOD 07/25/2024 9:46 PM EST [facility] Blood Venous blood specimen / Unknown Venipuncture / Unknown 07/25/2024 8:52 PM EST 07/25/2024 8:59 PM EST Ayaz Posada MD LAB BLOOD ORDERABLES Performing Organization Address [facility] Co de Phone Number [facility] [address] [place] [address], * (ABNORMAL) Salicylate level (07/25/2024 8:52 PM EST) [facility] Salicylate Level <1.7(L) 2.0 - 29.0 mg/dL LAB CHEMISTRY METHOD 07/25/2024 9:46 PM EST [facility] Blood Venous blood specimen / Unknown Venipuncture / Unknown 07/25/2024 8:52 PM EST 07/25/2024 8:59 PM EST Ayaz Posada MD LAB BLOOD ORDERABLES Performing Organization Address City/[facility]/ZIP Co de Phone Number [facility] [address] [place] [address], * (ABNORMAL) Comprehensive metabolic panel (07/25/2024 8:52 PM EST) Only the most recent of2 resultswithin the time period is included. Sodium 138 133 - 145 mmol/L LAB CHEMISTRY METHOD 07/25/2024 9:46 PM EST [facility] Potassium 3.0(L) 3.5 - 5.5 mmol/L LAB CHEMISTRY METHOD 07/25/2024 9:46 PM [facility] Chloride 107 96 - 110 mmol/L LAB CHEMISTRY METHOD 07/25/2024 9:46 PM [facility] CO2 24 21 - 32 mmol/L LAB CHEMISTRY METHOD 07/25/2024 9:46 PM [facility] Anion Gap 7 3 - 11 LAB CHEMISTRY METHOD 07/25/2024 9:46 PM [facility] Glucose 91 70 - 100 mg/dL LAB CHEMISTRY METHOD 07/25/2024 9:46 PM [facility] BUN 12 5 - 25 mg/dL LAB CHEMISTRY METHOD 07/25/2024 9:46 PM [facility] Creatinine 0.59 0.50 - 1.10 mg/dL LAB CHEMISTRY METHOD 07/25/2024 9:46 PM [facility] eGFR 116 >=60 mL/min/1. 73m2 LAB CHEMISTRY METHOD 07/25/2024 9:46 PM [facility] Comment:Calculation based on the??Chronic Kidney Disease Epidemiology Collaboration (CKD-EPI) equation refit??without adjustment for race. BUN/Creatinine Ratio 20.3 LAB CHEMISTRY METHOD 07/25/2024 9:46 PM [facility] Calcium 8.3(L) 8.5 - 10.5 mg/dL LAB CHEMISTRY METHOD 07/25/2024 9:46 PM [facility] AST (SGOT) 15 10 - 42 unit/L LAB CHEMISTRY METHOD 07/25/2024 9:46 PM [facility] ALT (SGPT) 18 10 - 60 unit/L LAB CHEMISTRY METHOD 07/25/2024 9:46 PM [facility] Alkaline Phosphatase 94 42 - 121 unit/L LAB CHEMISTRY METHOD 07/25/2024 9:46 PM [facility] Total Protein 6.7 6.0 - 8.0 g/dL LAB CHEMISTRY METHOD 07/25/2024 9:46 PM EST [facility] Albumin 3.8 3.2 - 5.0 g/dL LAB CHEMISTRY METHOD 07/25/2024 9:46 PM [facility] Total Bilirubin 0.3 0.0 - 1.4 mg/dL LAB CHEMISTRY METHOD 07/25/2024 9:46 PM [facility] Blood Venous blood specimen / Unknown Venipuncture / Unknown 07/25/2024 8:52 PM EST 07/25/2024 8:59 PM EST Ayaz Posada MD LAB BLOOD ORDERABLES [facility] [address] [place] [address], * POC , urine manually resulted (05/30/2024 5:48 AM EST) HCG, Ur POC Negative Negative POC hCG Int QC Pass? Yes Yes Urine Urine specimen obtained by clean catch procedure / Unknown 05/30/2024 5:48 AM EST Booker Velázquez MD POINT OF CARE TEST E NTER/EDIT ORDERABLES * Urinalysis with reflex microscopic and culture (05/29/2024 5:44 PM EST) Pathologist [facility] [place] Urine 1.020 1.003 - 1.030 LAB URINALYSIS - AUTOMATED METHOD 05/29/2024 6:13 PM [facility] pH, Urine 6.5 5.0 - 8.0 pH LAB URINALYSIS - AUTOMATED METHOD 05/29/2024 6:13 PM [facility] Leukocytes, Urine Negative Negative LAB URINALYSIS - AUTOMATED METHOD 05/29/2024 6:13 PM [facility] Nitrite, Urine Negative Negative LAB URINALYSIS - AUTOMATED METHOD 05/29/2024 6:13 PM [facility] Protein, Urine Negative <=Trace mg/dL LAB URINALYSIS - AUTOMATED METHOD 05/29/2024 6:13 PM [facility] Glucose, Urine Negative Negative mg/dL LAB URINALYSIS - AUTOMATED METHOD 05/29/2024 6:13 PM [facility] Ketones, Urine Negative Negative mg/dL LAB URINALYSIS - AUTOMATED METHOD 05/29/2024 6:13 PM [facility] Urobilinogen, Urine 0.2 0.2 - 1.0 mg/dL LAB URINALYSIS - AUTOMATED METHOD 05/29/2024 6:13 PM [facility] Bilirubin, Urine Negative Negative LAB URINALYSIS - AUTOMATED METHOD 05/29/2024 6:13 PM [facility] Blood, Urine Negative Negative LAB URINALYSIS - AUTOMATED METHOD 05/29/2024 6:13 PM [facility] Urine Urine specimen obtained by clean catch procedure / Unknown Non-blood Collection / Unknown 05/29/2024 5:44 PM EST 05/29/2024 5:54 PM EST Amilcar Kauffman MD LAB URINE ORDERAB LES Performing Organization Address City/[facility]/ZIP Co de Phone Number [facility] [address] [place] [phone], * Vieyra urine culture tube (05/29/2024 5:44 PM EST) Extra Tube Hold for add-ons. 05/29/2024 7:01 PM [facility] Comment:Auto resulted. Urine Urine specimen obtained by clean catch procedure / Unknown Non-blood Collection / Unknown 05/29/2024 5:44 PM EST 05/29/2024 5:54 PM EST Amilcar Kauffman MD LAB URINE ORDERAB LES [facility] [address] [place] [address], [place] [phone] from Last 3 Months Advance Directives Documents on File Type Date Recorded Patient Analytic Programmer Expl anation Advance Directives and Livin g Will 05/31/2024 2:33 PM Care Teams Brick Molder Hand Relationship Specialty Start Date End Date Physician, No Pcp PCP - General 07/25/24
[2024-07-26 17:04] VITALS: BMI 25.0
[2024-07-26 17:21] VITALS: BP 155/88; PULSE 65; RESP 16; TEMP 37.2; O2SAT 98
--- NOTE | 2024-07-26 17:31 | PM.EVENT ---
Event Note Date of Service: 07/26/24 Event Note: Patient signed CV edmonds warning given Time Spent With Patient Time: Total time managing care of this patient today ____ minutes.
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
[2024-07-26 19:36] LABS: Alanine Aminotransferase 16 U/L (0-31); Albumin Level 4.2 g/dL (3.5-5.0); Alkaline Phosphatase 97 U/L (39-117); Anion Gap 20 (12-20); Aspartate Amino Transferase 21 U/L (5-31); Bilirubin Total 0.2 mg/dL (0.0-1.0); Blood Urea Nitrogen 17 mg/dL (9-16); Calcium 9.2 mg/dL (8.4-10.2); Carbon Dioxide 21 mmol/L (22-29); Chloride 103 mmol/L (96-108); Creatinine Clr Calc Pharmacy 84.4; Estimated Glomerular Filt Rate > 60; Glucose Random 145 mg/dL (60-115); Potassium 3.9 mmol/L (3.3-5.1); Sodium 140 mmol/L (135-145); Total Protein 7.7 g/dL (6.5-8.0)
[2024-07-26 20:00] VITALS: BP 139/90; PULSE 81; TEMP 36.9; O2SAT 98
[2024-07-26] MEDS: Flu Vacc TS2024-25(6mos up)/PF 0.5 ML SYRINGE IM (20:46)
[2024-07-26] MEDS: traZODone HCL 50 MG TABLET PO (20:46)
[2024-07-26] MEDS: hydrOXYzine HCL 50 MG TABLET PO (20:46)
[2024-07-26] MEDS: Ibuprofen 600 MG TABLET PO (20:59)
[2024-07-26 21:00] VITALS: BP 139/90
[2024-07-26] MEDS: Acetaminophen 325 MG TABLET 650 MG PO (21:00)
[2024-07-26] MEDS: cloNIDine HCL 0.1 MG TABLET PO (21:00)
[2024-07-27 07:56] VITALS: BP 134/75; PULSE 52; RESP 16; TEMP 36.9; O2SAT 98
[2024-07-27] MEDS: methADONE HCl 20 MG/2 ML ORAL.CONC 120 MG PO (08:53)
[2024-07-27] MEDS: FLUoxetine HCl 20 MG CAPSULE PO (08:57)
[2024-07-27] MEDS: hydrOXYzine HCL 50 MG TABLET PO ×2 (08:57→20:50)
[2024-07-27] MEDS: amLODIPine Besylate 5 MG TABLET PO (08:57)
[2024-07-27] MEDS: cloNIDine HCL 0.1 MG TABLET PO ×3 (08:59→20:49)
[2024-07-27] MEDS: Ibuprofen 600 MG TABLET PO (10:08)
[2024-07-27] MEDS: Acetaminophen 325 MG TABLET 650 MG PO (10:09)
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
[2024-07-27 15:46] VITALS: BP 131/87; PULSE 65; RESP 18
[2024-07-27] MEDS: Gabapentin 300 MG CAPSULE PO ×2 (15:51→20:50)
[2024-07-27 20:00] VITALS: BP 110/70; PULSE 60; RESP 16; TEMP 36.4; O2SAT 98
[2024-07-27] MEDS: traZODone HCL 50 MG TABLET PO (20:50)
[2024-07-28] MEDS: traZODone HCL 50 MG TABLET PO ×2 (02:10→20:15)
[2024-07-28 07:00] VITALS: BMI 25.9
[2024-07-28 08:00] VITALS: BP 119/72; PULSE 70; RESP 16; TEMP 36.4; O2SAT 98
[2024-07-28] MEDS: methADONE HCl 20 MG/2 ML ORAL.CONC 120 MG PO (08:19)
[2024-07-28 09:07] VITALS: BP 119/72
[2024-07-28] MEDS: Gabapentin 300 MG CAPSULE PO ×3 (09:07→20:15)
[2024-07-28] MEDS: amLODIPine Besylate 5 MG TABLET PO (09:07)
[2024-07-28] MEDS: cloNIDine HCL 0.1 MG TABLET PO ×3 (09:07→20:15)
[2024-07-28] MEDS: hydrOXYzine HCL 50 MG TABLET PO ×3 (09:07→20:15)
[2024-07-28] MEDS: FLUoxetine HCl 20 MG CAPSULE PO (09:07)
[2024-07-28] MEDS: Acetaminophen 325 MG TABLET 650 MG PO ×2 (11:30→17:34)
[2024-07-28] MEDS: Ibuprofen 600 MG TABLET PO (11:31)
[2024-07-28] MEDS: ARIPiprazole 2 MG TABLET PO (12:31)
[2024-07-28 14:11] VITALS: BP 118/73
--- NOTE | 2024-07-28 14:59 | P.PNPSI_ITS ---
Subjective Subjective Date of Service: 07/28/24 Reason For Visit: Anxiety Interim History: calm, cooperative, pleasant. c/o substantial arm pain, feels the gabapentin was helpful. willing to start abilify as adjunctive antidepressant as well as araceli prophylaxis while on prozac. start 2 mg today. may increase prozac to 40 mg next week. per staff, slept 7 hours. refused labs this morning. Mental Status Exam Mental Status Exam Narrative: adequately dressed and groomed. cooperative, no PMA/PMR. speech nml rate, loudness, tone. incr amount, decr latency. thoughts linear and logical, digressive. affect constricted, normo-intense, non-labile. mood not assessed. no SI/SIBI/HI/VH expressed. Diagnostics Vital Signs (24Hr): Vital Signs - 24 hr 07/27/24 15:46 07/27/24 20:00 07/28/24 08:00 Temperature 97.6 F 97.6 F Pulse Rate 65 60 70 Respiratory Rate 18 16 16 Blood Pressure 131/87 110/70 119/72 Pulse Oximetry 98 98 Oxygen Delivery Method Room Air Room Air 07/28/24 09:07 07/28/24 09:07 07/28/24 14:11 Temperature Pulse Rate Respiratory Rate Blood Pressure 119/72 119/72 118/73 Pulse Oximetry Oxygen Delivery Method BMI result Body Mass Index 25.9 Labs 07/26/24 19:13 Labs: Laboratory Results - last 48 hr 07/26/24 19:13 Sodium 140 Potassium 3.9 Chloride 103 Carbon Dioxide 21 L Anion Gap 20 BUN 17 H Creatinine 0.79 Estim Creat Clear Calc 84.4 Estimated GFR > 60 Random Glucose 145 H Calcium 9.2 Total Bilirubin 0.2 AST 21 ALT 16 Alkaline Phosphatase 97 Total Protein 7.7 Albumin 4.2 Medications Medications Current Medications Acetaminophen (Acetaminophen 325 Mg Tablet) 650 mg PO Q6H PRN PRN Reason: Headache/Pain Mild Scale (1-3) Last Admin: 07/28/24 11:30 Dose: 650 mg Al Hydroxide/Mg Hydroxide (Magnesium Hydrox/Alum Hydrox 30 Ml Oral.Susp) 30 ml PO Q6H PRN PRN Reason: Heartburn/Nausea Amlodipine Besylate (Amlodipine Besylate 5 Mg Tablet) 5 mg PO DAILY [facility]; Protocol Last Admin: 07/28/24 09:07 Dose: 5 mg Aripiprazole (Aripiprazole 2 Mg Tablet) 2 mg PO DAILY [facility] Last Admin: 07/28/24 12:31 Dose: 2 mg Clonidine HCl (Clonidine Hcl 0.1 Mg Tablet) 0.1 mg PO TID [facility]; Protocol Last Admin: 07/28/24 14:11 Dose: 0.1 mg Fluoxetine HCl (Fluoxetine Hcl 20 Mg Capsule) 20 mg PO DAILY [facility] Last Admin: 07/28/24 09:07 Dose: 20 mg Gabapentin (Gabapentin 300 Mg Capsule) 300 mg PO TID [facility] Last Admin: 07/28/24 14:10 Dose: 300 mg Hydroxyzine HCl (Hydroxyzine Hcl 25 Mg Tablet) 25 mg PO Q6H PRN PRN Reason: Anxiety Hydroxyzine HCl (Hydroxyzine Hcl 50 Mg Tablet) 50 mg PO TID [facility] Last Admin: 07/28/24 14:11 Dose: 50 mg Ibuprofen (Ibuprofen 600 Mg Tablet) 600 mg PO BID PRN PRN Reason: Pain (Scale Score 7-10) Last Admin: 07/28/24 11:31 Dose: 600 mg Magnesium Hydroxide (Milk Of Magnesia 30 Ml Oral.Susp) 30 ml PO DAILY PRN PRN Reason: Constipation Methadone HCl (Methadone Hcl 20 Mg/2 Ml Oral.Conc) 120 mg PO DAILY [facility] Last Admin: 07/28/24 08:19 Dose: 120 mg Polyethylene Glycol (Polyethylene Glycol 3350 17 Gm Powd.Pack) 17 gm PO DAILY PRN PRN Reason: Constipation Trazodone HCl (Trazodone Hcl 50 Mg Tablet) 50 mg PO BEDTIME [facility] Last Admin: 07/27/24 20:50 Dose: 50 mg Trazodone HCl (Trazodone Hcl 50 Mg Tablet) 50 mg PO BEDTIME PRN PRN Reason: Insomnia Last Admin: 07/28/24 02:10 Dose: 50 mg Allergies Allergies Allergy/AdvReac Type Severity Reaction Status Date / Time No Known Allergies Allergy Unverified 03/08/20 19:21 [No Known Allergies*] Assessment & Plan Assessment & Plan (1) PTSD (post-traumatic stress disorder): Status: Acute Code(s): F43.10 - Post-traumatic stress disorder, unspecified (2) Opioid use disorder: Status: Acute Code(s): F11.90 - Opioid use, unspecified, uncomplicated (3) Cocaine use disorder: Status: Acute Code(s): F14.10 - Cocaine abuse, uncomplicated Plan 07/27: schedule clonidine and hydroxyzine, which were previously PRN only. add gabapentin 300 TID for neuropathic pain. otherwise restart/continue previous outpt regimen. 07/28: start abilify 2 mg daily for mood stabilization and depression. increase to 5 mg daily if tolerated. T/C increasing prozac to 40 mg daily once tolerability of abilify is established. also T/C increasing gabapentin dosing for neuropathic right arm pain. Reason for continued inpatient stay Substantial Risk for: inability to function and rapid decompensation Time Spent With Patient Time: Total time managing care of this patient today __25__ minutes.
[2024-07-28] MEDS: hydrOXYzine HCL 25 MG TABLET PO (17:34)
[2024-07-28 20:00] VITALS: BP 124/72; PULSE 65; RESP 16; TEMP 36.8; O2SAT 98
[2024-07-29] MEDS: hydrOXYzine HCL 25 MG TABLET PO (05:04)
[2024-07-29] MEDS: Acetaminophen 325 MG TABLET 650 MG PO ×2 (05:04→11:44)
[2024-07-29] MEDS: Ibuprofen 600 MG TABLET PO (05:05)
[2024-07-29 07:57] VITALS: BP 124/74; PULSE 68; RESP 14; TEMP 36.6; O2SAT 98
[2024-07-29] MEDS: methADONE HCl 20 MG/2 ML ORAL.CONC 120 MG PO (08:14)
[2024-07-29] MEDS: cloNIDine HCL 0.1 MG TABLET PO ×3 (08:35→21:04)
[2024-07-29] MEDS: amLODIPine Besylate 5 MG TABLET PO (08:35)
[2024-07-29] MEDS: Gabapentin 300 MG CAPSULE PO (08:35)
[2024-07-29] MEDS: FLUoxetine HCl 20 MG CAPSULE PO (08:36)
[2024-07-29] MEDS: hydrOXYzine HCL 50 MG TABLET PO ×3 (08:36→21:04)
[2024-07-29] MEDS: ARIPiprazole 2 MG TABLET PO ×2 (08:36→12:30)
[2024-07-29 14:16] VITALS: BP 128/77
[2024-07-29] MEDS: Gabapentin 300 MG CAPSULE 600 MG PO ×2 (14:17→21:03)
--- NOTE | 2024-07-29 15:13 | P.PNPSI_ITS ---
Subjective Subjective Date of Service: 07/29/24 Reason For Visit: Anxiety Interim History: c/o right arm pain from ulnar tunnel syndrome. agreeable to neuro consult and increase in gabapentin. states she had been told some kind of brace would be helpful. also agreeable to increase abilify to 4 mg today and 5 mg tomorrow. otherwise doing reasonably well. per staff, taking meds. c/o arm pain. tired, napping a lot.slept 8 hours. Mental Status Exam Mental Status Exam Narrative: adequately dressed and groomed. cooperative, no PMA/PMR. speech nml rate, loudness, tone. incr amount, decr latency. thoughts linear and logical. affect constricted, normo-intense, non-labile. mood not assessed. no SI/SIBI/HI/VH expressed. Diagnostics Vital Signs (24Hr): Vital Signs - 24 hr 07/28/24 20:00 07/29/24 07:57 07/29/24 14:16 Temperature 98.2 F 97.9 F Pulse Rate 65 68 Respiratory Rate 16 14 Blood Pressure 124/72 124/74 128/77 Pulse Oximetry 98 98 Oxygen Delivery Method Room Air Room Air BMI result Body Mass Index 25.9 Labs 07/26/24 19:13 Medications Medications Current Medications Acetaminophen (Acetaminophen 325 Mg Tablet) 650 mg PO Q6H PRN PRN Reason: Headache/Pain Mild Scale (1-3) Last Admin: 07/29/24 11:44 Dose: 650 mg Al Hydroxide/Mg Hydroxide (Magnesium Hydrox/Alum Hydrox 30 Ml Oral.Susp) 30 ml PO Q6H PRN PRN Reason: Heartburn/Nausea Amlodipine Besylate (Amlodipine Besylate 5 Mg Tablet) 5 mg PO DAILY [facility]; Protocol Last Admin: 07/29/24 08:35 Dose: 5 mg Aripiprazole (Aripiprazole 5 Mg Tablet) 5 mg PO DAILY [facility] Clonidine HCl (Clonidine Hcl 0.1 Mg Tablet) 0.1 mg PO TID [facility]; Protocol Last Admin: 07/29/24 14:16 Dose: 0.1 mg Fluoxetine HCl (Fluoxetine Hcl 20 Mg Capsule) 20 mg PO DAILY [facility] Last Admin: 07/29/24 08:36 Dose: 20 mg Gabapentin (Gabapentin 300 Mg Capsule) 600 mg PO TID [facility] Last Admin: 07/29/24 14:17 Dose: 600 mg Hydroxyzine HCl (Hydroxyzine Hcl 25 Mg Tablet) 25 mg PO Q6H PRN PRN Reason: Anxiety Last Admin: 07/29/24 05:04 Dose: 25 mg Hydroxyzine HCl (Hydroxyzine Hcl 50 Mg Tablet) 50 mg PO TID [facility] Last Admin: 07/29/24 14:16 Dose: 50 mg Ibuprofen (Ibuprofen 600 Mg Tablet) 600 mg PO BID PRN PRN Reason: Pain (Scale Score 7-10) Last Admin: 07/29/24 05:05 Dose: 600 mg Magnesium Hydroxide (Milk Of Magnesia 30 Ml Oral.Susp) 30 ml PO DAILY PRN PRN Reason: Constipation Methadone HCl (Methadone Hcl 20 Mg/2 Ml Oral.Conc) 120 mg PO DAILY [facility] Last Admin: 07/29/24 08:14 Dose: 120 mg Polyethylene Glycol (Polyethylene Glycol 3350 17 Gm Powd.Pack) 17 gm PO DAILY PRN PRN Reason: Constipation Trazodone HCl (Trazodone Hcl 50 Mg Tablet) 50 mg PO BEDTIME [facility] Last Admin: 07/28/24 20:15 Dose: 50 mg Trazodone HCl (Trazodone Hcl 50 Mg Tablet) 50 mg PO BEDTIME PRN PRN Reason: Insomnia Last Admin: 07/28/24 02:10 Dose: 50 mg Allergies Allergies Allergy/AdvReac Type Severity Reaction Status Date / Time No Known Allergies Allergy Unverified 03/08/20 19:21 [No Known Allergies*] Assessment & Plan Assessment & Plan (1) PTSD (post-traumatic stress disorder): Status: Acute Code(s): F43.10 - Post-traumatic stress disorder, unspecified (2) Opioid use disorder: Status: Acute Code(s): F11.90 - Opioid use, unspecified, uncomplicated (3) Cocaine use disorder: Status: Acute Code(s): F14.10 - Cocaine abuse, uncomplicated Plan 07/27: schedule clonidine and hydroxyzine, which were previously PRN only. add gabapentin 300 TID for neuropathic pain. otherwise restart/continue previous outpt regimen. 07/28: start abilify 2 mg daily for mood stabilization and depression. increase to 5 mg daily if tolerated. T/C increasing prozac to 40 mg daily once tolerability of abilify is established. also T/C increasing gabapentin dosing for neuropathic right arm pain. 07/29: improving affect. c/o ulnar tunnel syndrome pain. neuro consult for mgmt and increase gabapentin to 600 TID. increase abilify to 4 mg today and 5 mg tomorrow for mood. Reason for continued inpatient stay Substantial Risk for: inability to function and rapid decompensation Time Spent With Patient Time: Total time managing care of this patient today __35__ minutes.
[2024-07-29 20:00] VITALS: BP 115/55; PULSE 65; RESP 16; TEMP 36.3; O2SAT 98
[2024-07-29 21:04] VITALS: BP 115/55
[2024-07-29] MEDS: traZODone HCL 50 MG TABLET PO (21:04)
[2024-07-30] MEDS: traZODone HCL 50 MG TABLET PO ×2 (02:05→20:56)
[2024-07-30] MEDS: Ibuprofen 600 MG TABLET PO ×3 (02:09→18:14)
[2024-07-30] MEDS: Acetaminophen 325 MG TABLET 650 MG PO ×2 (02:09→14:51)
[2024-07-30] MEDS: methADONE HCl 20 MG/2 ML ORAL.CONC 120 MG PO (08:10)
[2024-07-30 08:22] VITALS: BP 158/68; PULSE 67; RESP 18; TEMP 36.9; O2SAT 100
--- NOTE | 2024-07-30 08:39 | P.PNPSI_ITS ---
Subjective Subjective Date of Service: 07/30/24 Reason For Visit: Anxiety Subjective Notes: Conditional Voluntary Healthcare Proxy: No Guardianship: No Medical Problems Affecting Mental Status: Yes (pain in elbow- not able to get brace due to ligature risk on unit at [facility]) Interim History: 43 yo hoping to get nsaid injection that she got at [facility]- Feels psych meds ok given recent inc abilify doesn't want to change anything further- Disappointed and discouraged over therapist reations to patient and thinking she can't trust this person going forward and might not be honest with her given recent disappointing interactions- prior to admission- Medication Compliance: Yes Side effects from medications: No Attending Groups: Yes Review of Systems Acute medical concerns: No Medical Review of Systems: unchanged Mental Status Exam Mental Status Exam Patient Appearance: Well Grooomed and Appropriate Patient Orientation: Person, Place, Time and Situation Level of Consciousness: Awake Patient Behavior: Appropriate, Talkative, Cooperative and Good Eye Contact Mood Description: Anxious Affect Description: Blunted Patient Cognition Impaired: No Ability to Follow Directions: Good Speech Pattern: Clear Hallucinations: None Thought Process: Intact and Goal Oriented Thought Content: positive for Intact Depressive Symptoms: Increased Anxiety, Muscle Tension and Increased Irritability Judgement: Fair Diagnostics Vital Signs (24Hr): Vital Signs - 24 hr 07/29/24 14:16 07/29/24 20:00 07/29/24 21:04 Temperature 97.4 F Pulse Rate 65 Respiratory Rate 16 Blood Pressure 128/77 115/55 L 115/55 L Pulse Oximetry 98 Oxygen Delivery Method Room Air 07/30/24 08:22 Temperature 98.4 F Pulse Rate 67 Respiratory Rate 18 Blood Pressure 158/68 H Pulse Oximetry 100 Oxygen Delivery Method Room Air BMI result Body Mass Index 25.9 Labs 07/26/24 19:13 Medications Medications Current Medications Acetaminophen (Acetaminophen 325 Mg Tablet) 650 mg PO Q6H PRN PRN Reason: Headache/Pain Mild Scale (1-3) Last Admin: 07/30/24 02:09 Dose: 650 mg Al Hydroxide/Mg Hydroxide (Magnesium Hydrox/Alum Hydrox 30 Ml Oral.Susp) 30 ml PO Q6H PRN PRN Reason: Heartburn/Nausea Amlodipine Besylate (Amlodipine Besylate 5 Mg Tablet) 5 mg PO DAILY [facility]; Protocol Last Admin: 07/29/24 08:35 Dose: 5 mg Aripiprazole (Aripiprazole 5 Mg Tablet) 5 mg PO DAILY REPLACED BY [facility] Clonidine HCl (Clonidine Hcl 0.1 Mg Tablet) 0.1 mg PO TID REPLACED BY [facility]; Protocol Last Admin: 07/29/24 21:04 Dose: 0.1 mg Fluoxetine HCl (Fluoxetine Hcl 20 Mg Capsule) 20 mg PO DAILY REPLACED BY [facility] Last Admin: 07/29/24 08:36 Dose: 20 mg Gabapentin (Gabapentin 300 Mg Capsule) 600 mg PO TID REPLACED BY [facility] Last Admin: 07/29/24 21:03 Dose: 600 mg Hydroxyzine HCl (Hydroxyzine Hcl 25 Mg Tablet) 25 mg PO Q6H PRN PRN Reason: Anxiety Last Admin: 07/29/24 05:04 Dose: 25 mg Hydroxyzine HCl (Hydroxyzine Hcl 50 Mg Tablet) 50 mg PO TID REPLACED BY [facility] Last Admin: 07/29/24 21:04 Dose: 50 mg Ibuprofen (Ibuprofen 600 Mg Tablet) 600 mg PO BID PRN PRN Reason: Pain (Scale Score 7-10) Last Admin: 07/30/24 02:09 Dose: 600 mg Magnesium Hydroxide (Milk Of Magnesia 30 Ml Oral.Susp) 30 ml PO DAILY PRN PRN Reason: Constipation Methadone HCl (Methadone Hcl 20 Mg/2 Ml Oral.Conc) 120 mg PO DAILY REPLACED BY [facility] Last Admin: 07/30/24 08:10 Dose: 120 mg Polyethylene Glycol (Polyethylene Glycol 3350 17 Gm Powd.Pack) 17 gm PO DAILY PRN PRN Reason: Constipation Sodium Chloride (Sodium Chloride 0.65 % Nasal 44 Ml Sprbtl) 1 spray NOSTRIL-B Q1H PRN PRN Reason: dry nares Trazodone HCl (Trazodone Hcl 50 Mg Tablet) 50 mg PO BEDTIME REPLACED BY [facility] Last Admin: 07/29/24 21:04 Dose: 50 mg Trazodone HCl (Trazodone Hcl 50 Mg Tablet) 50 mg PO BEDTIME PRN PRN Reason: Insomnia Last Admin: 07/30/24 02:05 Dose: 50 mg Allergies Allergies Allergy/AdvReac Type Severity Reaction Status Date / Time No Known Allergies Allergy Unverified 03/08/20 19:21 [No Known Allergies*] Assessment & Plan Assessment & Plan (1) PTSD (post-traumatic stress disorder): Status: Acute Code(s): F43.10 - Post-traumatic stress disorder, unspecified (2) Opioid use disorder: Status: Acute Code(s): F11.90 - Opioid use, unspecified, uncomplicated (3) Cocaine use disorder: Status: Acute Code(s): F14.10 - Cocaine abuse, uncomplicated Plan 07/27: schedule clonidine and hydroxyzine, which were previously PRN only. add gabapentin 300 TID for neuropathic pain. otherwise restart/continue previous outpt regimen. 07/28: start abilify 2 mg daily for mood stabilization and depression. increase to 5 mg daily if tolerated. T/C increasing prozac to 40 mg daily once tolerability of abilify is established. also T/C increasing gabapentin dosing for neuropathic right arm pain. 07/29: improving affect. c/o ulnar tunnel syndrome pain. neuro consult for mgmt and increase gabapentin to 600 TID. increase abilify to 4 mg today and 5 mg tomorrow for mood. 07/30 ongoing ulnar pain - hoping to find out info about injection she had at 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
[2024-07-30] MEDS: amLODIPine Besylate 5 MG TABLET PO (08:58)
[2024-07-30] MEDS: cloNIDine HCL 0.1 MG TABLET PO ×3 (08:58→20:55)
[2024-07-30] MEDS: FLUoxetine HCl 20 MG CAPSULE PO (08:58)
[2024-07-30] MEDS: ARIPiprazole 5 MG TABLET PO (08:58)
[2024-07-30] MEDS: hydrOXYzine HCL 50 MG TABLET PO ×3 (08:58→20:54)
[2024-07-30] MEDS: Gabapentin 300 MG CAPSULE 600 MG PO ×3 (08:58→20:55)
[2024-07-30 09:03] LABS: Cholesterol 160 mg/dL (<200); HDL Cholesterol 24 mg/dL (>40); LDL Cholesterol Calculated 74 mg/dL (<100); Triglycerides 311 mg/dL (<150)
[2024-07-30 14:47] VITALS: BP 117/81
[2024-07-30 20:00] VITALS: BP 129/84; PULSE 75; RESP 18; TEMP 37.1; O2SAT 98
[2024-07-30] MEDS: polyethylene glycoL 3350 17 GM POWD.PACK PO (20:52)
[2024-07-30 20:55] VITALS: BP 129/84
[2024-07-31] MEDS: traZODone HCL 50 MG TABLET PO ×3 (01:25→23:26)
[2024-07-31] MEDS: Ibuprofen 600 MG TABLET PO ×3 (01:26→18:16)
[2024-07-31] MEDS: methADONE HCl 20 MG/2 ML ORAL.CONC 120 MG PO (07:49)
[2024-07-31 07:54] VITALS: BP 165/91; PULSE 66; RESP 16; TEMP 526.1; TEMP 979; O2SAT 100
[2024-07-31] MEDS: hydrOXYzine HCL 50 MG TABLET PO ×3 (08:27→20:14)
[2024-07-31] MEDS: amLODIPine Besylate 5 MG TABLET PO (08:27)
[2024-07-31] MEDS: cloNIDine HCL 0.1 MG TABLET PO ×3 (08:28→20:14)
[2024-07-31] MEDS: ARIPiprazole 5 MG TABLET PO (08:28)
[2024-07-31] MEDS: FLUoxetine HCl 20 MG CAPSULE PO (08:28)
[2024-07-31] MEDS: Gabapentin 300 MG CAPSULE 600 MG PO ×3 (08:28→20:14)
--- NOTE | 2024-07-31 11:51 | HO.PSYCHPN ---
Subjective Subjective Date of Service: 07/31/24 Reason For Visit: Anxiety Subjective Notes: Conditional Voluntary Healthcare Proxy: No Guardianship: No Medical Problems Affecting Mental Status: Yes (ulnar nerve pain) Interim History: Pt mentioned was manicky when first started fluoxetine and with inc doses but settles out- feeling a little racy today , talkative and energized, but slept last pm- and wants to wait a day- and discuss with dr crane- denies current si Medication Compliance: Yes Side effects from medications: No (? activation) Attending Groups: Yes Review of Systems Acute medical concerns: Yes ulner pain Medical Review of Systems: unchanged Mental Status Exam Mental Status Exam Narrative: casually dressed good eye contact hyperverbal but not pressured Patient Appearance: Appropriate Patient Orientation: Person, Place, Time and Situation Level of Consciousness: Awake Patient Behavior: Appropriate and Good Eye Contact Mood Description: Anxious Affect Description: Expansive (?) Patient Cognition Impaired: No Ability to Follow Directions: Fair Speech Pattern: Clear Hallucinations: None Thought Process: Intact and Goal Oriented Thought Content: positive for Racing (more rapid thoughts) Judgement: Fair Diagnostics Vital Signs (24Hr): Vital Signs - 24 hr 07/30/24 14:47 07/30/24 20:00 07/30/24 20:55 Temperature 98.7 F Pulse Rate 75 Respiratory Rate 18 Blood Pressure 117/81 129/84 129/84 Pulse Oximetry 98 Oxygen Delivery Method Room Air 07/31/24 07:54 Temperature 979 F H Pulse Rate 66 Respiratory Rate 16 Blood Pressure 165/91 H Pulse Oximetry 100 Oxygen Delivery Method Room Air BMI result Body Mass Index 25.9 Labs 07/26/24 19:13 Labs: Laboratory Results - last 48 hr 07/30/24 08:31 Triglycerides 311 H Cholesterol 160 LDL Cholesterol, Calc 74 HDL Cholesterol 24 L Medications Medications Current Medications Acetaminophen (Acetaminophen 325 Mg Tablet) 650 mg PO Q6H PRN PRN Reason: Headache/Pain Mild Scale (1-3) Last Admin: 07/30/24 14:51 Dose: 650 mg Al Hydroxide/Mg Hydroxide (Magnesium Hydrox/Alum Hydrox 30 Ml Oral.Susp) 30 ml PO Q6H PRN PRN Reason: Heartburn/Nausea Amlodipine Besylate (Amlodipine Besylate 5 Mg Tablet) 5 mg PO DAILY [facility]; Protocol Last Admin: 07/31/24 08:27 Dose: 5 mg Aripiprazole (Aripiprazole 5 Mg Tablet) 5 mg PO DAILY [facility] Last Admin: 07/31/24 08:28 Dose: 5 mg Clonidine HCl (Clonidine Hcl 0.1 Mg Tablet) 0.1 mg PO TID [facility]; Protocol Last Admin: 07/31/24 08:28 Dose: 0.1 mg Fluoxetine HCl (Fluoxetine Hcl 20 Mg Capsule) 20 mg PO DAILY [facility] Last Admin: 07/31/24 08:28 Dose: 20 mg Gabapentin (Gabapentin 300 Mg Capsule) 600 mg PO TID [facility] Last Admin: 07/31/24 08:28 Dose: 600 mg Hydroxyzine HCl (Hydroxyzine Hcl 25 Mg Tablet) 25 mg PO Q6H PRN PRN Reason: Anxiety Last Admin: 07/29/24 05:04 Dose: 25 mg Hydroxyzine HCl (Hydroxyzine Hcl 50 Mg Tablet) 50 mg PO TID [facility] Last Admin: 07/31/24 08:27 Dose: 50 mg Ibuprofen (Ibuprofen 600 Mg Tablet) 600 mg PO Q6H PRN PRN Reason: Pain (Scale Score 7-10) Last Admin: 07/31/24 11:43 Dose: 600 mg Magnesium Hydroxide (Milk Of Magnesia 30 Ml Oral.Susp) 30 ml PO DAILY PRN PRN Reason: Constipation Methadone HCl (Methadone Hcl 20 Mg/2 Ml Oral.Conc) 120 mg PO DAILY [facility] Last Admin: 07/31/24 07:49 Dose: 120 mg Polyethylene Glycol (Polyethylene Glycol 3350 17 Gm Powd.Pack) 17 gm PO DAILY PRN PRN Reason: Constipation Last Admin: 07/30/24 20:52 Dose: 17 gm Sodium Chloride (Sodium Chloride 0.65 % Nasal 44 Ml Sprbtl) 1 spray NOSTRIL-B Q1H PRN PRN Reason: dry nares Trazodone HCl (Trazodone Hcl 50 Mg Tablet) 50 mg PO BEDTIME [facility] Last Admin: 07/30/24 20:56 Dose: 50 mg Trazodone HCl (Trazodone Hcl 50 Mg Tablet) 50 mg PO BEDTIME PRN PRN Reason: Insomnia Last Admin: 07/31/24 01:25 Dose: 50 mg Allergies Allergies Allergy/AdvReac Type Severity Reaction Status Date / Time No Known Allergies Allergy Unverified 03/08/20 19:21 [No Known Allergies*] Assessment & Plan Assessment & Plan (1) PTSD (post-traumatic stress disorder): Status: Acute Code(s): F43.10 - Post-traumatic stress disorder, unspecified (2) Opioid use disorder: Status: Acute Code(s): F11.90 - Opioid use, unspecified, uncomplicated (3) Cocaine use disorder: Status: Acute Code(s): F14.10 - Cocaine abuse, uncomplicated Plan 07/27: schedule clonidine and hydroxyzine, which were previously PRN only. add gabapentin 300 TID for neuropathic pain. otherwise restart/continue previous outpt regimen. 07/28: start abilify 2 mg daily for mood stabilization and depression. increase to 5 mg daily if tolerated. T/C increasing prozac to 40 mg daily once tolerability of abilify is established. also T/C increasing gabapentin dosing for neuropathic right arm pain. 07/29: improving affect. c/o ulnar tunnel syndrome pain. neuro consult for mgmt and increase gabapentin to 600 TID. increase abilify to 4 mg today and 5 mg tomorrow for mood. 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
[2024-07-31] MEDS: Acetaminophen 325 MG TABLET 650 MG PO ×2 (14:29→23:26)
[2024-07-31 20:00] VITALS: BP 104/65; PULSE 59; RESP 18; TEMP 36.4; O2SAT 96
[2024-08-01] MEDS: Ibuprofen 600 MG TABLET PO ×3 (00:11→17:41)
[2024-08-01 07:49] VITALS: BP 134/80; PULSE 63; RESP 14; TEMP 36.6; O2SAT 97
[2024-08-01] MEDS: methADONE HCl 20 MG/2 ML ORAL.CONC 120 MG PO (07:58)
[2024-08-01] MEDS: ARIPiprazole 5 MG TABLET PO (08:29)
[2024-08-01] MEDS: amLODIPine Besylate 5 MG TABLET PO (08:29)
[2024-08-01] MEDS: cloNIDine HCL 0.1 MG TABLET PO ×2 (08:29→15:17)
[2024-08-01] MEDS: hydrOXYzine HCL 50 MG TABLET PO ×3 (08:30→21:01)
[2024-08-01] MEDS: Gabapentin 300 MG CAPSULE 600 MG PO (08:30)
[2024-08-01] MEDS: FLUoxetine HCl 20 MG CAPSULE PO (08:30)
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
[2024-08-01] MEDS: Acetaminophen 325 MG TABLET 650 MG PO ×2 (13:15→21:01)
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
[2024-08-01 15:17] VITALS: BP 133/87
[2024-08-01] MEDS: Gabapentin 400 MG CAPSULE 800 MG PO ×2 (15:17→21:01)
[2024-08-01 20:00] VITALS: BP 105/58; PULSE 69; RESP 16; TEMP 36.3; O2SAT 96
[2024-08-01] MEDS: traZODone HCL 50 MG TABLET PO (22:20)
[2024-08-01 22:21] VITALS: BP 119/78
[2024-08-01] MEDS: cloNIDine HCL 0.2 MG TABLET PO (22:21)
[2024-08-01 22:24] VITALS: BP 119/78
[2024-08-02] MEDS: methADONE HCl 20 MG/2 ML ORAL.CONC 120 MG PO (08:09)
[2024-08-02 08:10] VITALS: BP 138/84; PULSE 70; RESP 16; TEMP 36.6; O2SAT 99
[2024-08-02] MEDS: Gabapentin 400 MG CAPSULE 800 MG PO ×3 (08:47→20:40)
[2024-08-02] MEDS: ARIPiprazole 5 MG TABLET PO (08:48)
[2024-08-02] MEDS: amLODIPine Besylate 5 MG TABLET PO (08:48)
[2024-08-02] MEDS: cloNIDine HCL 0.1 MG TABLET PO ×2 (08:48→14:20)
[2024-08-02] MEDS: hydrOXYzine HCL 50 MG TABLET PO ×3 (08:48→20:40)
[2024-08-02] MEDS: FLUoxetine HCl 20 MG CAPSULE PO (08:49)
[2024-08-02] MEDS: polyethylene glycoL 3350 17 GM POWD.PACK PO (08:54)
[2024-08-02] MEDS: Ibuprofen 800 MG TABLET PO ×3 (11:50→21:01)
[2024-08-02 14:20] VITALS: BP 123/71
--- NOTE | 2024-08-02 14:41 | HO.PSYCHPN ---
Subjective Subjective Date of Service: 08/02/24 Reason For Visit: Anxiety Interim History: calm, cooperative. slept well. pain in arm, but improved. asking to increase prozac and also trazodone at HS, which are done. worked with ROBER Henry to apply to [facility]. per staff, cv, 15s, med compliant, seen by dr. dc yesterday. depressed. slept 8 hours. wants colace. Mental Status Exam Mental Status Exam Narrative: adequately dressed and groomed. cooperative, no PMA/PMR. speech nml rate, loudness, tone. incr amount, decr latency. thoughts linear and logical. affect constricted, normo-intense, non-labile. mood anxious. no SI/SIBI/HI/VH expressed. Diagnostics Vital Signs (24Hr): Vital Signs - 24 hr 08/01/24 15:17 08/01/24 20:00 08/01/24 22:21 Temperature 97.3 F Pulse Rate 69 Respiratory Rate 16 Blood Pressure 133/87 105/58 L 119/78 Pulse Oximetry 96 Oxygen Delivery Method Room Air 08/01/24 22:24 08/02/24 08:10 08/02/24 14:20 Temperature 97.9 F Pulse Rate 70 Respiratory Rate 16 Blood Pressure 119/78 138/84 123/71 Pulse Oximetry 99 Oxygen Delivery Method Room Air BMI result Body Mass Index 25.9 Labs 07/26/24 19:13 Medications Medications Current Medications Acetaminophen (Acetaminophen 325 Mg Tablet) 650 mg PO Q6H PRN PRN Reason: Headache/Pain Mild Scale (1-3) Last Admin: 08/01/24 21:01 Dose: 650 mg Al Hydroxide/Mg Hydroxide (Magnesium Hydrox/Alum Hydrox 30 Ml Oral.Susp) 30 ml PO Q6H PRN PRN Reason: Heartburn/Nausea Amlodipine Besylate (Amlodipine Besylate 5 Mg Tablet) 5 mg PO DAILY [facility]; Protocol Last Admin: 08/02/24 08:48 Dose: 5 mg Aripiprazole (Aripiprazole 5 Mg Tablet) 5 mg PO DAILY [facility] Last Admin: 08/02/24 08:48 Dose: 5 mg Clonidine HCl (Clonidine Hcl 0.1 Mg Tablet) 0.1 mg PO BID@0900,1500 [facility]; Protocol Last Admin: 08/02/24 14:20 Dose: 0.1 mg Clonidine HCl (Clonidine Hcl 0.2 Mg Tablet) 0.2 mg PO BEDTIME [facility]; Protocol Last Admin: 08/01/24 22:24 Dose: Not Given Fluoxetine HCl (Fluoxetine Hcl 20 Mg Capsule) 40 mg PO DAILY [facility] Gabapentin (Gabapentin 400 Mg Capsule) 800 mg PO TID [facility] Last Admin: 08/02/24 14:20 Dose: 800 mg Hydroxyzine HCl (Hydroxyzine Hcl 25 Mg Tablet) 25 mg PO Q6H PRN PRN Reason: Anxiety Last Admin: 07/29/24 05:04 Dose: 25 mg Hydroxyzine HCl (Hydroxyzine Hcl 50 Mg Tablet) 50 mg PO TID [facility] Last Admin: 08/02/24 14:20 Dose: 50 mg Ibuprofen (Ibuprofen 800 Mg Tablet) 800 mg PO Q4H PRN PRN Reason: Pain (Scale Score 7-10) Last Admin: 08/02/24 11:50 Dose: 800 mg Magnesium Hydroxide (Milk Of Magnesia 30 Ml Oral.Susp) 30 ml PO DAILY PRN PRN Reason: Constipation Methadone HCl (Methadone Hcl 20 Mg/2 Ml Oral.Conc) 120 mg PO DAILY [facility] Last Admin: 08/02/24 08:09 Dose: 120 mg Polyethylene Glycol (Polyethylene Glycol 3350 17 Gm Powd.Pack) 17 gm PO DAILY PRN PRN Reason: Constipation Last Admin: 08/02/24 08:54 Dose: 17 gm Sodium Chloride (Sodium Chloride 0.65 % Nasal 44 Ml Sprbtl) 1 spray NOSTRIL-B Q1H PRN PRN Reason: dry nares Trazodone HCl (Trazodone Hcl 50 Mg Tablet) 50 mg PO BEDTIME PRN PRN Reason: Insomnia Last Admin: 07/31/24 23:26 Dose: 50 mg Trazodone HCl (Trazodone Hcl 100 Mg Tablet) 100 mg PO BEDTIME [facility] Allergies Allergies Allergy/AdvReac Type Severity Reaction Status Date / Time No Known Allergies Allergy Unverified 03/08/20 19:21 [No Known Allergies*] Assessment & Plan Assessment & Plan (1) Right elbow pain: Status: Acute Code(s): M25.521 - Pain in right elbow Assessment and Plan: Clinical features are not suggestive of pain coming from ulnar nerve pathology, which she might have. Presentation of pain is suggestive more of tendinitis or tennis elbow type of pathology. Treatment is local heat application, avoidance of heavy physical activity, and p.r.n. anti-inflammatory agents. Otherwise an orthopedic consultation can also be obtained. (2) Cocaine use disorder: Status: Acute Code(s): F14.10 - Cocaine abuse, uncomplicated (3) Opioid use disorder: Status: Acute Code(s): F11.90 - Opioid use, unspecified, uncomplicated (4) PTSD (post-traumatic stress disorder): Status: Acute Code(s): F43.10 - Post-traumatic stress disorder, unspecified (5) HTN (hypertension): Status: Acute Code(s): I10 - Essential (primary) hypertension Plan 07/27: schedule clonidine and hydroxyzine, which were previously PRN only. add gabapentin 300 TID for neuropathic pain. otherwise restart/continue previous outpt regimen. 07/28: start abilify 2 mg daily for mood stabilization and depression. increase to 5 mg daily if tolerated. T/C increasing prozac to 40 mg daily once tolerability of abilify is established. also T/C increasing gabapentin dosing for neuropathic right arm pain. 07/29: improving affect. c/o ulnar tunnel syndrome pain. neuro consult for mgmt and increase gabapentin to 600 TID. increase abilify to 4 mg today and 5 mg tomorrow for mood. 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 08/01: feeling wrongly assessed by neuro. agreeable to increase gabapentin to 800 TID for pain and anxiety. also c/o insomnia and nightmares, agreeable to increase clonidine to 0.2 mg at HS. otherwise continue current mgmt. appreciate neuro input. 08/02: moderate pain improvement, improved anxiety. slept well for the first time in a long time per her report. agreeable to increase trazodone to 100, which is the dose she's had in the past. also asking to increase prozac, changed to 40 for tomorrow. otherwise continue current mgmt. Reason for continued inpatient stay Substantial Risk for: harm to self, inability to function and rapid decompensation Time Spent With Patient Time: Total time managing care of this patient today __25__ minutes.
[2024-08-02 20:00] VITALS: BP 110/65; PULSE 70; RESP 16; TEMP 36.8; O2SAT 97
[2024-08-02] MEDS: cloNIDine HCL 0.2 MG TABLET PO (20:40)
[2024-08-02] MEDS: traZODone HCL 100 MG TABLET PO (20:40)
[2024-08-03 07:42] VITALS: BP 134/77; PULSE 75; RESP 16; TEMP 36.6; O2SAT 98
[2024-08-03] MEDS: methADONE HCl 20 MG/2 ML ORAL.CONC 120 MG PO (08:25)
[2024-08-03] MEDS: amLODIPine Besylate 5 MG TABLET PO (09:20)
[2024-08-03] MEDS: ARIPiprazole 5 MG TABLET PO (09:20)
[2024-08-03] MEDS: FLUoxetine HCl 20 MG CAPSULE 40 MG PO (09:20)
[2024-08-03] MEDS: cloNIDine HCL 0.1 MG TABLET PO ×2 (09:20→14:40)
[2024-08-03] MEDS: Gabapentin 400 MG CAPSULE 800 MG PO ×3 (09:20→20:27)
[2024-08-03] MEDS: hydrOXYzine HCL 50 MG TABLET PO ×3 (09:21→20:26)
[2024-08-03] MEDS: Ibuprofen 800 MG TABLET PO ×4 (09:33→21:21)
[2024-08-03 14:38] VITALS: BP 130/73; PULSE 75; RESP 16; TEMP 36.4
[2024-08-03] MEDS: Dry Mouth Spray 60 ML SPRAY 1 SPRAY MUCOUS MEM (15:59)
--- NOTE | 2024-08-03 16:19 | HO.PSYCHPN ---
Subjective Subjective Date of Service: 08/03/24 Reason For Visit: Anxiety Interim History: reports she slept quite well again. arm hurting less. awaiting word from [facility]. colace added per pt request. per staff, anxious. taking meds. slept 7 hours. Mental Status Exam Mental Status Exam Narrative: adequately dressed and groomed. cooperative, no PMA/PMR. speech nml rate, loudness, tone. incr amount, decr latency. thoughts linear and logical. affect constricted, normo-intense, non-labile. mood anxious. no SI/SIBI/HI/VH expressed. Diagnostics Vital Signs (24Hr): Vital Signs - 24 hr 08/02/24 20:00 08/03/24 07:42 08/03/24 14:38 Temperature 98.3 F 97.9 F 97.6 F Pulse Rate 70 75 75 Respiratory Rate 16 16 16 Blood Pressure 110/65 134/77 130/73 Pulse Oximetry 97 98 Oxygen Delivery Method Room Air Room Air Room Air BMI result Body Mass Index 25.9 Labs 07/26/24 19:13 Medications Medications Current Medications Acetaminophen (Acetaminophen 325 Mg Tablet) 650 mg PO Q6H PRN PRN Reason: Headache/Pain Mild Scale (1-3) Last Admin: 08/01/24 21:01 Dose: 650 mg Al Hydroxide/Mg Hydroxide (Magnesium Hydrox/Alum Hydrox 30 Ml Oral.Susp) 30 ml PO Q6H PRN PRN Reason: Heartburn/Nausea Amlodipine Besylate (Amlodipine Besylate 5 Mg Tablet) 5 mg PO DAILY [facility]; Protocol Last Admin: 08/03/24 09:20 Dose: 5 mg Aripiprazole (Aripiprazole 5 Mg Tablet) 5 mg PO DAILY [facility] Last Admin: 08/03/24 09:20 Dose: 5 mg Benzocaine (Throat Lozenge, Medicated Lozenge) 1 lozenge MUCOUS MEM Q1H PRN PRN Reason: sore throat Clonidine HCl (Clonidine Hcl 0.1 Mg Tablet) 0.1 mg PO BID@0900,1500 [facility]; Protocol Last Admin: 08/03/24 14:40 Dose: 0.1 mg Clonidine HCl (Clonidine Hcl 0.2 Mg Tablet) 0.2 mg PO BEDTIME [facility]; Protocol Last Admin: 08/02/24 20:40 Dose: 0.2 mg Docusate Sodium (Docusate Sodium 100 Mg Capsule) 200 mg PO BEDTIME [facility] Docusate Sodium (Docusate Sodium 100 Mg Capsule) 200 mg PO DAILY PRN PRN Reason: Constipation Fluoxetine HCl (Fluoxetine Hcl 20 Mg Capsule) 40 mg PO DAILY [facility] Last Admin: 08/03/24 09:20 Dose: 40 mg Gabapentin (Gabapentin 400 Mg Capsule) 800 mg PO TID [facility] Last Admin: 08/03/24 14:39 Dose: 800 mg Hydroxyzine HCl (Hydroxyzine Hcl 25 Mg Tablet) 25 mg PO Q6H PRN PRN Reason: Anxiety Last Admin: 07/29/24 05:04 Dose: 25 mg Hydroxyzine HCl (Hydroxyzine Hcl 50 Mg Tablet) 50 mg PO TID [facility] Last Admin: 08/03/24 14:40 Dose: 50 mg Ibuprofen (Ibuprofen 800 Mg Tablet) 800 mg PO Q4H PRN PRN Reason: Pain (Scale Score 7-10) Last Admin: 08/03/24 12:45 Dose: 800 mg Magnesium Hydroxide (Milk Of Magnesia 30 Ml Oral.Susp) 30 ml PO DAILY PRN PRN Reason: Constipation Methadone HCl (Methadone Hcl 20 Mg/2 Ml Oral.Conc) 120 mg PO DAILY [facility] Last Admin: 08/03/24 08:25 Dose: 120 mg Polyethylene Glycol (Polyethylene Glycol 3350 17 Gm Powd.Pack) 17 gm PO DAILY PRN PRN Reason: Constipation Last Admin: 08/02/24 08:54 Dose: 17 gm Saliva Substitute (Dry Mouth [place] 60 Ml [place]) 1 spray MUCOUS MEM Q2H PRN PRN Reason: dry mouth Last Admin: 08/03/24 15:59 Dose: 1 spray Sodium Chloride (Sodium Chloride 0.65 % Nasal 44 Ml Sprbtl) 1 spray NOSTRIL-B Q1H PRN PRN Reason: dry nares Trazodone HCl (Trazodone Hcl 50 Mg Tablet) 50 mg PO BEDTIME PRN PRN Reason: Insomnia Last Admin: 07/31/24 23:26 Dose: 50 mg Trazodone HCl (Trazodone Hcl 100 Mg Tablet) 100 mg PO BEDTIME [facility] Last Admin: 08/02/24 20:40 Dose: 100 mg Allergies Allergies Allergy/AdvReac Type Severity Reaction Status Date / Time No Known Allergies Allergy Unverified 03/08/20 19:21 [No Known Allergies*] Assessment & Plan Assessment & Plan (1) Right elbow pain: Status: Acute Code(s): M25.521 - Pain in right elbow Assessment and Plan: Clinical features are not suggestive of pain coming from ulnar nerve pathology, which she might have. Presentation of pain is suggestive more of tendinitis or tennis elbow type of pathology. Treatment is local heat application, avoidance of heavy physical activity, and p.r.n. anti-inflammatory agents. Otherwise an orthopedic consultation can also be obtained. (2) Cocaine use disorder: Status: Acute Code(s): F14.10 - Cocaine abuse, uncomplicated (3) Opioid use disorder: Status: Acute Code(s): F11.90 - Opioid use, unspecified, uncomplicated (4) PTSD (post-traumatic stress disorder): Status: Acute Code(s): F43.10 - Post-traumatic stress disorder, unspecified (5) HTN (hypertension): Status: Acute Code(s): I10 - Essential (primary) hypertension Plan 07/27: schedule clonidine and hydroxyzine, which were previously PRN only. add gabapentin 300 TID for neuropathic pain. otherwise restart/continue previous outpt regimen. 07/28: start abilify 2 mg daily for mood stabilization and depression. increase to 5 mg daily if tolerated. T/C increasing prozac to 40 mg daily once tolerability of abilify is established. also T/C increasing gabapentin dosing for neuropathic right arm pain. 07/29: improving affect. c/o ulnar tunnel syndrome pain. neuro consult for mgmt and increase gabapentin to 600 TID. increase abilify to 4 mg today and 5 mg tomorrow for mood. 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 08/01: feeling wrongly assessed by neuro. agreeable to increase gabapentin to 800 TID for pain and anxiety. also c/o insomnia and nightmares, agreeable to increase clonidine to 0.2 mg at HS. otherwise continue current mgmt. appreciate neuro input. 08/02: moderate pain improvement, improved anxiety. slept well for the first time in a long time per her report. agreeable to increase trazodone to 100, which is the dose she's had in the past. also asking to increase prozac, changed to 40 for tomorrow. otherwise continue current mgmt. 08/03: slept well again, arm pain lessened. awaiting word from [facility]. continue current mgmt. Reason for continued inpatient stay Substantial Risk for: harm to self, inability to function and rapid decompensation Time Spent With Patient Time: Total time managing care of this patient today __25__ minutes.
--- NOTE | 2024-08-03 18:34 | PC.NURSE ---
Jabier was admitted to M3? at 1525? from [facility] S3 on 12B for treatment of bipolar disorder and Asperger?s Disorder. Prior to recent admission to M5? family reported pt had no sleep x 5 days, was hyperverbal and ?out of touch with reality?.? On M5 Pt became symptomatically hypertensive and was admitted to medical. Today he was medically cleared and readmitted to psych. Pt is on 12B. He declines to participate in admission process. He is hyperverbal with repetitive but polite requests of staff.?? He declined to fill out menu, ?I won?t be eating here.?? He denies use of substances. He denies physical complaint. He denies ideation, plan or intent to harm self or others.? He states his goal of admission is to ? leave now?? Safety Checks are q 15 minutes.
[2024-08-03 20:00] VITALS: BP 114/70; PULSE 70; RESP 16; TEMP 36.3; O2SAT 98
[2024-08-03] MEDS: traZODone HCL 100 MG TABLET PO (20:26)
[2024-08-03] MEDS: cloNIDine HCL 0.2 MG TABLET PO (20:26)
[2024-08-03] MEDS: Docusate Sodium 100 MG CAPSULE 200 MG PO (20:27)
[2024-08-03] MEDS: Throat Lozenge, Medicated LOZENGE 1 LOZENGE MUCOUS MEM (21:21)
--- NOTE | 2024-08-04 | ECG_ITS ---
Test Reason : H/O NM Blood Pressure : */* mmHG Vent. Rate : 69 BPM Atrial Rate : 69 BPM P-R Int : 156 ms QRS Dur : 76 ms QT Int : 422 ms P-R-T Axes : 44 64 40 degrees QTcB Int : 452 ms Normal sinus rhythm Normal ECG No previous ECGs available Referred By: Travis Travis Electronically Signed By: MAGNOLIA HORAN MD
[2024-08-04] MEDS: traZODone HCL 50 MG TABLET PO (01:45)
[2024-08-04] MEDS: Dry Mouth Spray 60 ML SPRAY 1 SPRAY MUCOUS MEM ×3 (02:39→15:12)
[2024-08-04 07:00] VITALS: BMI 27.2
[2024-08-04 07:48] VITALS: BP 124/71; PULSE 60; RESP 16; TEMP 36.3; O2SAT 99
[2024-08-04] MEDS: methADONE HCl 20 MG/2 ML ORAL.CONC 120 MG PO (08:05)
[2024-08-04 09:02] VITALS: BP 124/71; PULSE 60; RESP 16; TEMP 36.3; O2SAT 99
[2024-08-04] MEDS: amLODIPine Besylate 5 MG TABLET PO (09:07)
[2024-08-04] MEDS: FLUoxetine HCl 20 MG CAPSULE 40 MG PO (09:08)
[2024-08-04] MEDS: hydrOXYzine HCL 50 MG TABLET PO ×3 (09:08→22:10)
[2024-08-04] MEDS: ARIPiprazole 5 MG TABLET PO (09:08)
[2024-08-04] MEDS: cloNIDine HCL 0.1 MG TABLET PO ×2 (09:08→15:08)
[2024-08-04] MEDS: Gabapentin 400 MG CAPSULE 800 MG PO ×3 (09:08→22:08)
[2024-08-04] MEDS: Ibuprofen 800 MG TABLET PO ×3 (09:24→22:17)
[2024-08-04 15:08] VITALS: BP 131/83
--- NOTE | 2024-08-04 18:31 | HO.PSYCHPN ---
Subjective Subjective Date of Service: 08/04/24 Reason For Visit: Anxiety Interim History: reports h/o [place] x2, states she was told to F/U with cardiology. agrees to screening EKG. reports nightmares last night. agreeable to increase clonidine at HS to 0.3. also discuss potential role of trazodone in exacerbating nightmares/vivid dreams. discuss dispo planning, states she is interested in applying more broadly to [facility], with a statewide search in mind. MD refers her to speak with ROBER Henry on that subject. per staff, taking meds. c/o right arm pain. c/o constipation. slept about 6 hours. Mental Status Exam Mental Status Exam Narrative: adequately dressed and groomed. cooperative, no PMA/PMR. speech nml rate, loudness, tone. incr amount, decr latency. thoughts linear and logical. affect full range, normo-intense, non-labile. mood anxious. no SI/SIBI/HI/VH expressed. Diagnostics Vital Signs (24Hr): Vital Signs - 24 hr 08/03/24 20:00 08/04/24 07:48 08/04/24 09:02 Temperature 97.4 F 97.3 F 97.3 F Pulse Rate 70 60 60 Respiratory Rate 16 16 16 Blood Pressure 114/70 124/71 124/71 Pulse Oximetry 98 99 99 Oxygen Delivery Method Room Air Room Air Room Air 08/04/24 15:08 Temperature Pulse Rate Respiratory Rate Blood Pressure 131/83 Pulse Oximetry Oxygen Delivery Method BMI result Body Mass Index 27.2 Labs 07/26/24 19:13 Medications Medications Current Medications Acetaminophen (Acetaminophen 325 Mg Tablet) 650 mg PO Q6H PRN PRN Reason: Headache/Pain Mild Scale (1-3) Last Admin: 08/01/24 21:01 Dose: 650 mg Al Hydroxide/Mg Hydroxide (Magnesium Hydrox/Alum Hydrox 30 Ml Oral.Susp) 30 ml PO Q6H PRN PRN Reason: Heartburn/Nausea Amlodipine Besylate (Amlodipine Besylate 5 Mg Tablet) 5 mg PO DAILY [facility]; Protocol Last Admin: 08/04/24 09:07 Dose: 5 mg Aripiprazole (Aripiprazole 5 Mg Tablet) 5 mg PO DAILY [facility] Last Admin: 08/04/24 09:08 Dose: 5 mg Benzocaine (Throat Lozenge, Medicated Lozenge) 1 lozenge MUCOUS MEM Q1H PRN PRN Reason: sore throat Last Admin: 08/03/24 21:21 Dose: 1 lozenge Clonidine HCl (Clonidine Hcl 0.1 Mg Tablet) 0.1 mg PO BID@0900,1500 [facility]; Protocol Last Admin: 08/04/24 15:08 Dose: 0.1 mg Clonidine HCl (Clonidine Hcl 0.1 Mg Tablet) 0.3 mg PO DAILY@2130 [facility]; Protocol Docusate Sodium (Docusate Sodium 100 Mg Capsule) 200 mg PO BEDTIME [facility] Last Admin: 08/03/24 20:27 Dose: 200 mg Docusate Sodium (Docusate Sodium 100 Mg Capsule) 200 mg PO DAILY PRN PRN Reason: Constipation Fluoxetine HCl (Fluoxetine Hcl 20 Mg Capsule) 40 mg PO DAILY [facility] Last Admin: 08/04/24 09:08 Dose: 40 mg Gabapentin (Gabapentin 400 Mg Capsule) 800 mg PO TID [facility] Last Admin: 08/04/24 15:07 Dose: 800 mg Hydroxyzine HCl (Hydroxyzine Hcl 25 Mg Tablet) 25 mg PO Q6H PRN PRN Reason: Anxiety Last Admin: 07/29/24 05:04 Dose: 25 mg Hydroxyzine HCl (Hydroxyzine Hcl 50 Mg Tablet) 50 mg PO TID [facility] Last Admin: 08/04/24 15:08 Dose: 50 mg Ibuprofen (Ibuprofen 800 Mg Tablet) 800 mg PO Q4H PRN PRN Reason: Pain (Scale Score 7-10) Last Admin: 08/04/24 15:11 Dose: 800 mg Magnesium Hydroxide (Milk Of Magnesia 30 Ml Oral.Susp) 30 ml PO DAILY PRN PRN Reason: Constipation Methadone HCl (Methadone Hcl 20 Mg/2 Ml Oral.Conc) 120 mg PO DAILY [facility] Last Admin: 08/04/24 08:05 Dose: 120 mg Polyethylene Glycol (Polyethylene Glycol 3350 17 Gm Powd.Pack) 17 gm PO DAILY PRN PRN Reason: Constipation Last Admin: 08/02/24 08:54 Dose: 17 gm Saliva Substitute (Dry Mouth [place] 60 Ml [place]) 1 spray MUCOUS MEM Q2H PRN PRN Reason: dry mouth Last Admin: 08/04/24 15:12 Dose: 1 spray Sodium Chloride (Sodium Chloride 0.65 % Nasal 44 Ml Sprbtl) 1 spray NOSTRIL-B Q1H PRN PRN Reason: dry nares Trazodone HCl (Trazodone Hcl 50 Mg Tablet) 50 mg PO BEDTIME PRN PRN Reason: Insomnia Last Admin: 08/04/24 01:45 Dose: 50 mg Trazodone HCl (Trazodone Hcl 100 Mg Tablet) 100 mg PO BEDTIME [facility] Last Admin: 08/03/24 20:26 Dose: 100 mg Allergies Allergies Allergy/AdvReac Type Severity Reaction Status Date / Time No Known Allergies Allergy Unverified 03/08/20 19:21 [No Known Allergies*] Assessment & Plan Assessment & Plan (1) Right elbow pain: Status: Acute Code(s): M25.521 - Pain in right elbow Assessment and Plan: Clinical features are not suggestive of pain coming from ulnar nerve pathology, which she might have. Presentation of pain is suggestive more of tendinitis or tennis elbow type of pathology. Treatment is local heat application, avoidance of heavy physical activity, and p.r.n. anti-inflammatory agents. Otherwise an orthopedic consultation can also be obtained. (2) Cocaine use disorder: Status: Acute Code(s): F14.10 - Cocaine abuse, uncomplicated (3) Opioid use disorder: Status: Acute Code(s): F11.90 - Opioid use, unspecified, uncomplicated (4) PTSD (post-traumatic stress disorder): Status: Acute Code(s): F43.10 - Post-traumatic stress disorder, unspecified (5) HTN (hypertension): Status: Acute Code(s): I10 - Essential (primary) hypertension Plan 07/27: schedule clonidine and hydroxyzine, which were previously PRN only. add gabapentin 300 TID for neuropathic pain. otherwise restart/continue previous outpt regimen. 07/28: start abilify 2 mg daily for mood stabilization and depression. increase to 5 mg daily if tolerated. T/C increasing prozac to 40 mg daily once tolerability of abilify is established. also T/C increasing gabapentin dosing for neuropathic right arm pain. 07/29: improving affect. c/o ulnar tunnel syndrome pain. neuro consult for mgmt and increase gabapentin to 600 TID. increase abilify to 4 mg today and 5 mg tomorrow for mood. 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 08/01: feeling wrongly assessed by neuro. agreeable to increase gabapentin to 800 TID for pain and anxiety. also c/o insomnia and nightmares, agreeable to increase clonidine to 0.2 mg at HS. otherwise continue current mgmt. appreciate neuro input. 08/02: moderate pain improvement, improved anxiety. slept well for the first time in a long time per her report. agreeable to increase trazodone to 100, which is the dose she's had in the past. also asking to increase prozac, changed to 40 for tomorrow. otherwise continue current mgmt. 08/03: slept well again, arm pain lessened. awaiting word from [facility]. continue current mgmt. 08/04: pt's insurance apparently does not cover CSS; alternate dispo plan will need to be developed. clonidine at HS increased to 0.3 mg for nightmares and insomnia in PTSD. EKG WNL, no need for inpatient cardiology consult. continue current mgmt otherwise. Reason for continued inpatient stay Substantial Risk for: harm to self, inability to function and rapid decompensation Time Spent With Patient Time: Total time managing care of this patient today __25__ minutes.
[2024-08-04 21:45] VITALS: BP 102/60; PULSE 62; RESP 16; TEMP 36.3; O2SAT 98
[2024-08-04] MEDS: Docusate Sodium 100 MG CAPSULE 200 MG PO (22:09)
[2024-08-04] MEDS: cloNIDine HCL 0.1 MG TABLET 0.3 MG PO (22:09)
[2024-08-04] MEDS: traZODone HCL 100 MG TABLET PO (22:10)
[2024-08-05] MEDS: Dry Mouth Spray 60 ML SPRAY 1 SPRAY MUCOUS MEM ×3 (01:18→11:59)
[2024-08-05] MEDS: traZODone HCL 50 MG TABLET PO (01:19)
[2024-08-05 07:15] VITALS: BP 144/80; PULSE 73; RESP 16; TEMP 36.6; O2SAT 99
[2024-08-05] MEDS: methADONE HCl 20 MG/2 ML ORAL.CONC 120 MG PO (08:01)
[2024-08-05] MEDS: Gabapentin 400 MG CAPSULE 800 MG PO ×3 (09:11→20:07)
[2024-08-05] MEDS: ARIPiprazole 5 MG TABLET PO (09:11)
[2024-08-05] MEDS: FLUoxetine HCl 20 MG CAPSULE 40 MG PO (09:12)
[2024-08-05] MEDS: hydrOXYzine HCL 50 MG TABLET PO ×3 (09:12→20:08)
[2024-08-05 09:14] VITALS: BP 151/96; PULSE 75
[2024-08-05] MEDS: cloNIDine HCL 0.1 MG TABLET PO (09:16)
[2024-08-05] MEDS: Ibuprofen 800 MG TABLET PO ×2 (09:16→13:43)
[2024-08-05] MEDS: amLODIPine Besylate 5 MG TABLET PO (09:17)
--- NOTE | 2024-08-05 15:06 | HO.PSYCHPN ---
Subjective Subjective Date of Service: 08/05/24 Reason For Visit: Anxiety Interim History: pleasant, cooperative. asking for clonidine increase during the day, agreed to. otherwise doing reasonably well, sleeping but still with some nightmares. per staff, c/o right elbow pain. incr anxiety due to dispo planning. dep 4 anx 5. slept better, 8 hours. Mental Status Exam Mental Status Exam Narrative: adequately dressed and groomed. cooperative, no PMA/PMR. speech nml rate, loudness, tone. incr amount, decr latency. thoughts linear and logical. affect full range, normo-intense, non-labile. mood anxious. no SI/SIBI/HI/VH expressed. Diagnostics Vital Signs (24Hr): Vital Signs - 24 hr 08/04/24 15:08 08/04/24 21:45 08/05/24 07:15 Temperature 97.3 F 97.9 F Pulse Rate 62 73 Respiratory Rate 16 16 Blood Pressure 131/83 102/60 144/80 H Pulse Oximetry 98 99 Oxygen Delivery Method Room Air Room Air 08/05/24 09:14 Temperature Pulse Rate 75 Respiratory Rate Blood Pressure 151/96 H Pulse Oximetry Oxygen Delivery Method BMI result Body Mass Index 27.2 Labs 07/26/24 19:13 Medications Medications Current Medications Acetaminophen (Acetaminophen 325 Mg Tablet) 650 mg PO Q6H PRN PRN Reason: Headache/Pain Mild Scale (1-3) Last Admin: 08/01/24 21:01 Dose: 650 mg Al Hydroxide/Mg Hydroxide (Magnesium Hydrox/Alum Hydrox 30 Ml Oral.Susp) 30 ml PO Q6H PRN PRN Reason: Heartburn/Nausea Amlodipine Besylate (Amlodipine Besylate 5 Mg Tablet) 5 mg PO DAILY [facility]; Protocol Last Admin: 08/05/24 09:17 Dose: 5 mg Aripiprazole (Aripiprazole 5 Mg Tablet) 5 mg PO DAILY [facility] Last Admin: 08/05/24 09:11 Dose: 5 mg Benzocaine (Throat Lozenge, Medicated Lozenge) 1 lozenge MUCOUS MEM Q1H PRN PRN Reason: sore throat Last Admin: 08/03/24 21:21 Dose: 1 lozenge Clonidine HCl (Clonidine Hcl 0.1 Mg Tablet) 0.3 mg PO DAILY@2130 [facility]; Protocol Last Admin: 08/04/24 22:09 Dose: 0.3 mg Clonidine HCl (Clonidine Hcl 0.1 Mg Tablet) 0.15 mg PO BID@0900,1500 [facility]; Protocol Docusate Sodium (Docusate Sodium 100 Mg Capsule) 200 mg PO BEDTIME [facility] Last Admin: 08/04/24 22:09 Dose: 200 mg Docusate Sodium (Docusate Sodium 100 Mg Capsule) 200 mg PO DAILY PRN PRN Reason: Constipation Fluoxetine HCl (Fluoxetine Hcl 20 Mg Capsule) 40 mg PO DAILY [facility] Last Admin: 08/05/24 09:12 Dose: 40 mg Gabapentin (Gabapentin 400 Mg Capsule) 800 mg PO TID [facility] Last Admin: 08/05/24 09:11 Dose: 800 mg Hydroxyzine HCl (Hydroxyzine Hcl 25 Mg Tablet) 25 mg PO Q6H PRN PRN Reason: Anxiety Last Admin: 07/29/24 05:04 Dose: 25 mg Hydroxyzine HCl (Hydroxyzine Hcl 50 Mg Tablet) 50 mg PO TID [facility] Last Admin: 08/05/24 09:12 Dose: 50 mg Ibuprofen (Ibuprofen 800 Mg Tablet) 800 mg PO Q4H PRN PRN Reason: Pain (Scale Score 7-10) Last Admin: 08/05/24 13:43 Dose: 800 mg Magnesium Hydroxide (Milk Of Magnesia 30 Ml Oral.Susp) 30 ml PO DAILY PRN PRN Reason: Constipation Methadone HCl (Methadone Hcl 20 Mg/2 Ml Oral.Conc) 120 mg PO DAILY [facility] Last Admin: 08/05/24 08:01 Dose: 120 mg Polyethylene Glycol (Polyethylene Glycol 3350 17 Gm Powd.Pack) 17 gm PO DAILY PRN PRN Reason: Constipation Last Admin: 08/02/24 08:54 Dose: 17 gm Saliva Substitute (Dry Mouth [place] 60 Ml [place]) 1 spray MUCOUS MEM Q2H PRN PRN Reason: dry mouth Last Admin: 08/05/24 11:59 Dose: 1 spray Sodium Chloride (Sodium Chloride 0.65 % Nasal 44 Ml Sprbtl) 1 spray NOSTRIL-B Q1H PRN PRN Reason: dry nares Trazodone HCl (Trazodone Hcl 50 Mg Tablet) 50 mg PO BEDTIME PRN PRN Reason: Insomnia Last Admin: 08/05/24 01:19 Dose: 50 mg Trazodone HCl (Trazodone Hcl 100 Mg Tablet) 100 mg PO BEDTIME [facility] Last Admin: 08/04/24 22:10 Dose: 100 mg Allergies Allergies Allergy/AdvReac Type Severity Reaction Status Date / Time No Known Allergies Allergy Unverified 03/08/20 19:21 [No Known Allergies*] Assessment & Plan Assessment & Plan (1) Right elbow pain: Status: Acute Code(s): M25.521 - Pain in right elbow Assessment and Plan: Clinical features are not suggestive of pain coming from ulnar nerve pathology, which she might have. Presentation of pain is suggestive more of tendinitis or tennis elbow type of pathology. Treatment is local heat application, avoidance of heavy physical activity, and p.r.n. anti-inflammatory agents. Otherwise an orthopedic consultation can also be obtained. (2) Cocaine use disorder: Status: Acute Code(s): F14.10 - Cocaine abuse, uncomplicated (3) Opioid use disorder: Status: Acute Code(s): F11.90 - Opioid use, unspecified, uncomplicated (4) PTSD (post-traumatic stress disorder): Status: Acute Code(s): F43.10 - Post-traumatic stress disorder, unspecified (5) HTN (hypertension): Status: Acute Code(s): I10 - Essential (primary) hypertension Plan 07/27: schedule clonidine and hydroxyzine, which were previously PRN only. add gabapentin 300 TID for neuropathic pain. otherwise restart/continue previous outpt regimen. 07/28: start abilify 2 mg daily for mood stabilization and depression. increase to 5 mg daily if tolerated. T/C increasing prozac to 40 mg daily once tolerability of abilify is established. also T/C increasing gabapentin dosing for neuropathic right arm pain. 07/29: improving affect. c/o ulnar tunnel syndrome pain. neuro consult for mgmt and increase gabapentin to 600 TID. increase abilify to 4 mg today and 5 mg tomorrow for mood. 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 08/01: feeling wrongly assessed by neuro. agreeable to increase gabapentin to 800 TID for pain and anxiety. also c/o insomnia and nightmares, agreeable to increase clonidine to 0.2 mg at HS. otherwise continue current mgmt. appreciate neuro input. 08/02: moderate pain improvement, improved anxiety. slept well for the first time in a long time per her report. agreeable to increase trazodone to 100, which is the dose she's had in the past. also asking to increase prozac, changed to 40 for tomorrow. otherwise continue current mgmt. 08/03: slept well again, arm pain lessened. awaiting word from [facility]. continue current mgmt. 08/04: pt's insurance apparently does not cover CSS; alternate dispo plan will need to be developed. clonidine at HS increased to 0.3 mg for nightmares and insomnia in PTSD. EKG WNL, no need for inpatient cardiology consult. continue current mgmt otherwise. 08/05: slept better, anxious during day. increase daytime clonidine to 0.15 BID. otherwise continue current mgmt. Reason for continued inpatient stay Substantial Risk for: harm to self, inability to function and rapid decompensation Time Spent With Patient Time: Total time managing care of this patient today __25__ minutes.
[2024-08-05 15:28] VITALS: BP 107/60; PULSE 66
[2024-08-05] MEDS: cloNIDine HCL 0.1 MG TABLET 0.15 MG PO (15:31)
[2024-08-05 20:00] VITALS: BP 100/60; PULSE 63; RESP 16; TEMP 36.3; O2SAT 97
[2024-08-05] MEDS: cloNIDine HCL 0.1 MG TABLET 0.3 MG PO (20:07)
[2024-08-05] MEDS: traZODone HCL 100 MG TABLET PO (20:08)
[2024-08-05] MEDS: Docusate Sodium 100 MG CAPSULE 200 MG PO (20:08)
[2024-08-05] MEDS: polyethylene glycoL 3350 17 GM POWD.PACK PO (22:42)
[2024-08-06 07:56] VITALS: BP 125/77; PULSE 60; RESP 16; TEMP 36.4; O2SAT 96
[2024-08-06] MEDS: methADONE HCl 20 MG/2 ML ORAL.CONC 120 MG PO (08:35)
[2024-08-06] MEDS: ARIPiprazole 5 MG TABLET PO (08:37)
[2024-08-06] MEDS: hydrOXYzine HCL 50 MG TABLET PO ×3 (08:37→20:19)
[2024-08-06] MEDS: FLUoxetine HCl 20 MG CAPSULE 40 MG PO (08:37)
[2024-08-06] MEDS: amLODIPine Besylate 5 MG TABLET PO (08:37)
[2024-08-06] MEDS: Gabapentin 400 MG CAPSULE 800 MG PO ×3 (08:38→20:19)
[2024-08-06] MEDS: cloNIDine HCL 0.1 MG TABLET 0.15 MG PO ×2 (08:38→16:29)
--- NOTE | 2024-08-06 09:29 | HO.PSYCHPN ---
Subjective Subjective Date of Service: 08/06/24 Reason For Visit: Anxiety Interim History: Patient was seen and discussed in rounds today. Records and plans were reviewed. She has been stable, med compliant. No complaints or side effects. Eating and sleeping well. No SI. No changes were made today Review of Systems Review of Systems Yes all other systems are reviewed and are negative Mental Status Exam Mental Status Exam Narrative: In today's visit she is alert, oriented and pleasant. Normal speech. Moderate eye contact. Appropriate affect. No acute signs of psychosis. No SI. No AVH. Cognitively is grossly intact. Judgment is intact. Moves all limbs. No gait abnormalities Diagnostics Vital Signs (24Hr): Vital Signs - 24 hr 08/05/24 15:28 08/05/24 20:00 08/06/24 07:56 Temperature 97.4 F 97.6 F Pulse Rate 66 63 60 Respiratory Rate 16 16 Blood Pressure 107/60 100/60 125/77 Pulse Oximetry 97 96 Oxygen Delivery Method Room Air Room Air BMI result Body Mass Index 27.2 Labs 07/26/24 19:13 Medications Medications Current Medications Acetaminophen (Acetaminophen 325 Mg Tablet) 650 mg PO Q6H PRN PRN Reason: Headache/Pain Mild Scale (1-3) Last Admin: 08/01/24 21:01 Dose: 650 mg Al Hydroxide/Mg Hydroxide (Magnesium Hydrox/Alum Hydrox 30 Ml Oral.Susp) 30 ml PO Q6H PRN PRN Reason: Heartburn/Nausea Amlodipine Besylate (Amlodipine Besylate 5 Mg Tablet) 5 mg PO DAILY [facility]; Protocol Last Admin: 08/06/24 08:37 Dose: 5 mg Aripiprazole (Aripiprazole 5 Mg Tablet) 5 mg PO DAILY [facility] Last Admin: 08/06/24 08:37 Dose: 5 mg Benzocaine (Throat Lozenge, Medicated Lozenge) 1 lozenge MUCOUS MEM Q1H PRN PRN Reason: sore throat Last Admin: 08/03/24 21:21 Dose: 1 lozenge Clonidine HCl (Clonidine Hcl 0.1 Mg Tablet) 0.3 mg PO DAILY@2130 [facility]; Protocol Last Admin: 08/05/24 20:07 Dose: 0.3 mg Clonidine HCl (Clonidine Hcl 0.1 Mg Tablet) 0.15 mg PO BID@0900,1500 [facility]; Protocol Last Admin: 08/06/24 08:38 Dose: 0.15 mg Docusate Sodium (Docusate Sodium 100 Mg Capsule) 200 mg PO BEDTIME [facility] Last Admin: 08/05/24 20:08 Dose: 200 mg Docusate Sodium (Docusate Sodium 100 Mg Capsule) 200 mg PO DAILY PRN PRN Reason: Constipation Fluoxetine HCl (Fluoxetine Hcl 20 Mg Capsule) 40 mg PO DAILY [facility] Last Admin: 08/06/24 08:37 Dose: 40 mg Gabapentin (Gabapentin 400 Mg Capsule) 800 mg PO TID [facility] Last Admin: 08/06/24 08:38 Dose: 800 mg Hydroxyzine HCl (Hydroxyzine Hcl 25 Mg Tablet) 25 mg PO Q6H PRN PRN Reason: Anxiety Last Admin: 07/29/24 05:04 Dose: 25 mg Hydroxyzine HCl (Hydroxyzine Hcl 50 Mg Tablet) 50 mg PO TID [facility] Last Admin: 08/06/24 08:37 Dose: 50 mg Ibuprofen (Ibuprofen 800 Mg Tablet) 800 mg PO Q4H PRN PRN Reason: Pain (Scale Score 7-10) Last Admin: 08/05/24 13:43 Dose: 800 mg Magnesium Hydroxide (Milk Of Magnesia 30 Ml Oral.Susp) 30 ml PO DAILY PRN PRN Reason: Constipation Methadone HCl (Methadone Hcl 20 Mg/2 Ml Oral.Conc) 120 mg PO DAILY [facility] Last Admin: 08/06/24 08:35 Dose: 120 mg Polyethylene Glycol (Polyethylene Glycol 3350 17 Gm Powd.Pack) 17 gm PO DAILY PRN PRN Reason: Constipation Last Admin: 08/05/24 22:42 Dose: 17 gm Saliva Substitute (Dry Mouth [place] 60 Ml [place]) 1 spray MUCOUS MEM Q2H PRN PRN Reason: dry mouth Last Admin: 08/05/24 11:59 Dose: 1 spray Sodium Chloride (Sodium Chloride 0.65 % Nasal 44 Ml Sprbtl) 1 spray NOSTRIL-B Q1H PRN PRN Reason: dry nares Trazodone HCl (Trazodone Hcl 50 Mg Tablet) 50 mg PO BEDTIME PRN PRN Reason: Insomnia Last Admin: 08/05/24 01:19 Dose: 50 mg Trazodone HCl (Trazodone Hcl 100 Mg Tablet) 100 mg PO BEDTIME [facility] Last Admin: 08/05/24 20:08 Dose: 100 mg Allergies Allergies Allergy/AdvReac Type Severity Reaction Status Date / Time No Known Allergies Allergy Unverified 03/08/20 19:21 [No Known Allergies*] Assessment & Plan Assessment & Plan (1) Right elbow pain: Status: Acute Code(s): M25.521 - Pain in right elbow Assessment and Plan: Clinical features are not suggestive of pain coming from ulnar nerve pathology, which she might have. Presentation of pain is suggestive more of tendinitis or tennis elbow type of pathology. Treatment is local heat application, avoidance of heavy physical activity, and p.r.n. anti-inflammatory agents. Otherwise an orthopedic consultation can also be obtained. (2) Cocaine use disorder: Status: Acute Code(s): F14.10 - Cocaine abuse, uncomplicated (3) Opioid use disorder: Status: Acute Code(s): F11.90 - Opioid use, unspecified, uncomplicated (4) PTSD (post-traumatic stress disorder): Status: Acute Code(s): F43.10 - Post-traumatic stress disorder, unspecified (5) HTN (hypertension): Status: Acute Code(s): I10 - Essential (primary) hypertension Plan 07/27: schedule clonidine and hydroxyzine, which were previously PRN only. add gabapentin 300 TID for neuropathic pain. otherwise restart/continue previous outpt regimen. 07/28: start abilify 2 mg daily for mood stabilization and depression. increase to 5 mg daily if tolerated. T/C increasing prozac to 40 mg daily once tolerability of abilify is established. also T/C increasing gabapentin dosing for neuropathic right arm pain. 07/29: improving affect. c/o ulnar tunnel syndrome pain. neuro consult for mgmt and increase gabapentin to 600 TID. increase abilify to 4 mg today and 5 mg tomorrow for mood. 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 08/01: feeling wrongly assessed by neuro. agreeable to increase gabapentin to 800 TID for pain and anxiety. also c/o insomnia and nightmares, agreeable to increase clonidine to 0.2 mg at HS. otherwise continue current mgmt. appreciate neuro input. 08/02: moderate pain improvement, improved anxiety. slept well for the first time in a long time per her report. agreeable to increase trazodone to 100, which is the dose she's had in the past. also asking to increase prozac, changed to 40 for tomorrow. otherwise continue current mgmt. 08/03: slept well again, arm pain lessened. awaiting word from [facility]. continue current mgmt. 08/04: pt's insurance apparently does not cover CSS; alternate dispo plan will need to be developed. clonidine at HS increased to 0.3 mg for nightmares and insomnia in PTSD. EKG WNL, no need for inpatient cardiology consult. continue current mgmt otherwise. 08/05: slept better, anxious during day. increase daytime clonidine to 0.15 BID. otherwise continue current mgmt. 08/06: Continue current regimen and plans Reason for continued inpatient stay Substantial Risk for: med/psych decompensation Time Spent With Patient Time: Total time managing care of this patient today ____ minutes.
[2024-08-06] MEDS: Lidocaine 4 % Patch ADH..PATCH 1 PATCH TRANSDERMA (12:25)
[2024-08-06] MEDS: bisacodyL 10 MG SUPP.RECT PR (12:27)
[2024-08-06 16:29] VITALS: BP 126/80
[2024-08-06] MEDS: Ibuprofen 800 MG TABLET PO ×2 (16:35→22:52)
[2024-08-06] MEDS: Dry Mouth Spray 60 ML SPRAY 1 SPRAY MUCOUS MEM ×2 (16:37→22:52)
[2024-08-06 20:00] VITALS: BP 94/60; PULSE 58; RESP 16; TEMP 36.2; O2SAT 95
[2024-08-06] MEDS: Docusate Sodium 100 MG CAPSULE 200 MG PO (20:18)
[2024-08-06] MEDS: traZODone HCL 100 MG TABLET PO (20:18)
[2024-08-06] MEDS: cloNIDine HCL 0.1 MG TABLET 0.3 MG PO (20:18)
[2024-08-06] MEDS: traZODone HCL 50 MG TABLET PO (22:52)
[2024-08-07 08:00] VITALS: BP 126/62; PULSE 61; RESP 14; TEMP 36.4; O2SAT 97
[2024-08-07] MEDS: methADONE HCl 20 MG/2 ML ORAL.CONC 120 MG PO (08:05)
[2024-08-07] MEDS: FLUoxetine HCl 20 MG CAPSULE 40 MG PO (08:08)
[2024-08-07] MEDS: hydrOXYzine HCL 50 MG TABLET PO ×3 (08:09→20:35)
[2024-08-07] MEDS: cloNIDine HCL 0.1 MG TABLET 0.15 MG PO ×2 (08:09→15:43)
[2024-08-07] MEDS: ARIPiprazole 5 MG TABLET PO (08:09)
[2024-08-07] MEDS: amLODIPine Besylate 5 MG TABLET PO (08:09)
[2024-08-07] MEDS: Gabapentin 400 MG CAPSULE 800 MG PO ×3 (08:09→20:35)
--- NOTE | 2024-08-07 09:59 | P.PNPSI_ITS ---
Subjective Subjective Date of Service: 08/07/24 Reason For Visit: Anxiety Interim History: Patient was seen and discussed in rounds today. Records and plans were reviewed. Yesterday afternoon she was complaining of discomfort and burning sensation at the bottom of her feet. Lidocaine gel was ordered but she did not use it and I informed her of this availability. Eating and sleeping adequately. No changes were made today Review of Systems Review of Systems Burning sensation at the bottom of her feet Yes all other systems are reviewed and are negative Mental Status Exam Mental Status Exam Narrative: In today's visit she is alert, oriented and pleasant. Normal speech. Moderate eye contact. Appropriate affect. No acute signs of psychosis. No SI. No AVH. Cognitively is grossly intact. Judgment is intact. Moves all limbs. No gait abnormalities Diagnostics Vital Signs (24Hr): Vital Signs - 24 hr 08/06/24 16:29 08/06/24 20:00 08/07/24 08:00 Temperature 97.2 F 97.6 F Pulse Rate 58 61 Respiratory Rate 16 14 Blood Pressure 126/80 94/60 126/62 Pulse Oximetry 95 97 Oxygen Delivery Method Room Air Room Air BMI result Body Mass Index 27.2 Labs 07/26/24 19:13 Medications Medications Current Medications Acetaminophen (Acetaminophen 325 Mg Tablet) 650 mg PO Q6H PRN PRN Reason: Headache/Pain Mild Scale (1-3) Last Admin: 08/01/24 21:01 Dose: 650 mg Al Hydroxide/Mg Hydroxide (Magnesium Hydrox/Alum Hydrox 30 Ml Oral.Susp) 30 ml PO Q6H PRN PRN Reason: Heartburn/Nausea Amlodipine Besylate (Amlodipine Besylate 5 Mg Tablet) 5 mg PO DAILY [facility]; Protocol Last Admin: 08/07/24 08:09 Dose: 5 mg Aripiprazole (Aripiprazole 5 Mg Tablet) 5 mg PO DAILY [facility] Last Admin: 08/07/24 08:09 Dose: 5 mg Benzocaine (Throat Lozenge, Medicated Lozenge) 1 lozenge MUCOUS MEM Q1H PRN PRN Reason: sore throat Last Admin: 08/03/24 21:21 Dose: 1 lozenge Clonidine HCl (Clonidine Hcl 0.1 Mg Tablet) 0.3 mg PO DAILY@2130 [facility]; Protocol Last Admin: 08/06/24 20:18 Dose: 0.3 mg Clonidine HCl (Clonidine Hcl 0.1 Mg Tablet) 0.15 mg PO BID@0900,1500 [facility]; Protocol Last Admin: 08/07/24 08:09 Dose: 0.15 mg Docusate Sodium (Docusate Sodium 100 Mg Capsule) 200 mg PO BEDTIME [facility] Last Admin: 08/06/24 20:18 Dose: 200 mg Docusate Sodium (Docusate Sodium 100 Mg Capsule) 200 mg PO DAILY PRN PRN Reason: Constipation Fluoxetine HCl (Fluoxetine Hcl 20 Mg Capsule) 40 mg PO DAILY [facility] Last Admin: 08/07/24 08:08 Dose: 40 mg Gabapentin (Gabapentin 400 Mg Capsule) 800 mg PO TID [facility] Last Admin: 08/07/24 08:09 Dose: 800 mg Hydroxyzine HCl (Hydroxyzine Hcl 25 Mg Tablet) 25 mg PO Q6H PRN PRN Reason: Anxiety Last Admin: 07/29/24 05:04 Dose: 25 mg Hydroxyzine HCl (Hydroxyzine Hcl 50 Mg Tablet) 50 mg PO TID [facility] Last Admin: 08/07/24 08:09 Dose: 50 mg Ibuprofen (Ibuprofen 800 Mg Tablet) 800 mg PO Q4H PRN PRN Reason: Pain (Scale Score 7-10) Last Admin: 08/06/24 22:52 Dose: 800 mg Lidocaine (Lidocaine 4 % Patch Adh..Patch) 1 patch TRANSDERMA DAILY [facility]; Protocol Last Admin: 08/06/24 12:25 Dose: 1 patch Magnesium Hydroxide (Milk Of Magnesia 30 Ml Oral.Susp) 30 ml PO DAILY PRN PRN Reason: Constipation Methadone HCl (Methadone Hcl 20 Mg/2 Ml Oral.Conc) 120 mg PO DAILY [facility] Last Admin: 08/07/24 08:05 Dose: 120 mg Polyethylene Glycol (Polyethylene Glycol 3350 17 Gm Powd.Pack) 17 gm PO DAILY PRN PRN Reason: Constipation Last Admin: 08/05/24 22:42 Dose: 17 gm Saliva Substitute (Dry Mouth [place] 60 Ml [place]) 1 spray MUCOUS MEM Q2H PRN PRN Reason: dry mouth Last Admin: 08/06/24 22:52 Dose: 1 spray Sodium Chloride (Sodium Chloride 0.65 % Nasal 44 Ml Sprbtl) 1 spray NOSTRIL-B Q1H PRN PRN Reason: dry nares Trazodone HCl (Trazodone Hcl 50 Mg Tablet) 50 mg PO BEDTIME PRN PRN Reason: Insomnia Last Admin: 08/06/24 22:52 Dose: 50 mg Trazodone HCl (Trazodone Hcl 100 Mg Tablet) 100 mg PO BEDTIME [facility] Last Admin: 08/06/24 20:18 Dose: 100 mg Allergies Allergies Allergy/AdvReac Type Severity Reaction Status Date / Time No Known Allergies Allergy Unverified 03/08/20 19:21 [No Known Allergies*] Assessment & Plan Assessment & Plan (1) Right elbow pain: Status: Acute Code(s): M25.521 - Pain in right elbow Assessment and Plan: Clinical features are not suggestive of pain coming from ulnar nerve pathology, which she might have. Presentation of pain is suggestive more of tendinitis or tennis elbow type of pathology. Treatment is local heat application, avoidance of heavy physical activity, and p.r.n. anti-inflammatory agents. Otherwise an orthopedic consultation can also be obtained. (2) Cocaine use disorder: Status: Acute Code(s): F14.10 - Cocaine abuse, uncomplicated (3) Opioid use disorder: Status: Acute Code(s): F11.90 - Opioid use, unspecified, uncomplicated (4) PTSD (post-traumatic stress disorder): Status: Acute Code(s): F43.10 - Post-traumatic stress disorder, unspecified (5) HTN (hypertension): Status: Acute Code(s): I10 - Essential (primary) hypertension Plan 07/27: schedule clonidine and hydroxyzine, which were previously PRN only. add gabapentin 300 TID for neuropathic pain. otherwise restart/continue previous outpt regimen. 07/28: start abilify 2 mg daily for mood stabilization and depression. increase to 5 mg daily if tolerated. T/C increasing prozac to 40 mg daily once tolerability of abilify is established. also T/C increasing gabapentin dosing for neuropathic right arm pain. 2: improving affect. c/o ulnar tunnel syndrome pain. neuro consult for mgmt and increase gabapentin to 600 TID. increase abilify to 4 mg today and 5 mg tomorrow for mood. 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 08/01: feeling wrongly assessed by neuro. agreeable to increase gabapentin to 800 TID for pain and anxiety. also c/o insomnia and nightmares, agreeable to increase clonidine to 0.2 mg at HS. otherwise continue current mgmt. appreciate neuro input. 08/02: moderate pain improvement, improved anxiety. slept well for the first time in a long time per her report. agreeable to increase trazodone to 100, which is the dose she's had in the past. also asking to increase prozac, changed to 40 for tomorrow. otherwise continue current mgmt. 08/03: slept well again, arm pain lessened. awaiting word from [facility]. continue current mgmt. 08/04: pt's insurance apparently does not cover CSS; alternate dispo plan will need to be developed. clonidine at HS increased to 0.3 mg for nightmares and insomnia in PTSD. EKG WNL, no need for inpatient cardiology consult. continue current mgmt otherwise. 08/05: slept better, anxious during day. increase daytime clonidine to 0.15 BID. otherwise continue current mgmt. 08/06: Continue current regimen and plans 08/07: Continue current regimen and plans. Patient educated on: medication risk/benefits Reason for continued inpatient stay Substantial Risk for: med/psych decompensation Time Spent With Patient Time: Total time managing care of this patient today ____ minutes.
[2024-08-07 15:41] VITALS: BP 109/66; PULSE 81; O2SAT 98
[2024-08-07] MEDS: Lidocaine 4 % Patch ADH..PATCH 1 PATCH TRANSDERMA (15:43)
[2024-08-07] MEDS: Docusate Sodium 100 MG CAPSULE 200 MG PO ×2 (17:39→20:34)
[2024-08-07 19:42] VITALS: BP 100/60; PULSE 58; RESP 16; TEMP 36.9; O2SAT 97
[2024-08-07] MEDS: cloNIDine HCL 0.1 MG TABLET 0.3 MG PO (20:33)
[2024-08-07] MEDS: traZODone HCL 100 MG TABLET PO (20:35)
[2024-08-07] MEDS: polyethylene glycoL 3350 17 GM POWD.PACK PO (20:35)
[2024-08-07] MEDS: Ibuprofen 800 MG TABLET PO (20:36)
[2024-08-07] MEDS: Dry Mouth Spray 60 ML SPRAY 1 SPRAY MUCOUS MEM (20:38)
[2024-08-07] MEDS: traZODone HCL 50 MG TABLET PO (22:34)
[2024-08-08 08:00] VITALS: BP 128/73; PULSE 75; RESP 16; TEMP 36.8; O2SAT 97
[2024-08-08] MEDS: methADONE HCl 20 MG/2 ML ORAL.CONC 120 MG PO (08:08)
[2024-08-08] MEDS: Lidocaine 4 % Patch ADH..PATCH 1 PATCH TRANSDERMA (08:47)
[2024-08-08] MEDS: hydrOXYzine HCL 50 MG TABLET PO ×3 (08:48→20:56)
[2024-08-08] MEDS: ARIPiprazole 5 MG TABLET PO (08:48)
[2024-08-08] MEDS: Gabapentin 400 MG CAPSULE 800 MG PO ×3 (08:48→20:56)
--- NOTE | 2024-08-08 08:48 | P.PNPSI_ITS ---
Subjective Subjective Date of Service: 08/08/24 Reason For Visit: Anxiety Subjective Notes: Conditional Voluntary Interim History: Patient was seen and discussed in rounds today. Records and plans were reviewed. She continues to complain of constipation secondary to methadone. Dulcolax suppository was effective 2 nights ago and another 1 is ordered today. Eating and sleeping adequately. No other side effects. No SI. No other changes. Review of Systems Review of Systems Constipation Yes all other systems are reviewed and are negative Mental Status Exam Mental Status Exam Narrative: In today's visit she is alert, oriented and pleasant. Normal speech. Moderate eye contact. Appropriate affect. No acute signs of psychosis. No SI. No AVH. Cognitively is grossly intact. Judgment is intact. Moves all limbs. No gait abnormalities Diagnostics Vital Signs (24Hr): Vital Signs - 24 hr 08/07/24 15:41 08/07/24 19:42 08/08/24 08:00 Temperature 98.4 F 98.2 F Pulse Rate 81 58 75 Respiratory Rate 16 16 Blood Pressure 109/66 100/60 128/73 Pulse Oximetry 98 97 97 Oxygen Delivery Method Room Air Room Air Room Air BMI result Body Mass Index 27.2 Labs 07/26/24 19:13 Medications Medications Current Medications Acetaminophen (Acetaminophen 325 Mg Tablet) 650 mg PO Q6H PRN PRN Reason: Headache/Pain Mild Scale (1-3) Last Admin: 08/01/24 21:01 Dose: 650 mg Al Hydroxide/Mg Hydroxide (Magnesium Hydrox/Alum Hydrox 30 Ml Oral.Susp) 30 ml PO Q6H PRN PRN Reason: Heartburn/Nausea Amlodipine Besylate (Amlodipine Besylate 5 Mg Tablet) 5 mg PO DAILY [facility]; Protocol Last Admin: 08/07/24 08:09 Dose: 5 mg Aripiprazole (Aripiprazole 5 Mg Tablet) 5 mg PO DAILY [facility] Last Admin: 08/07/24 08:09 Dose: 5 mg Benzocaine (Throat Lozenge, Medicated Lozenge) 1 lozenge MUCOUS MEM Q1H PRN PRN Reason: sore throat Last Admin: 08/03/24 21:21 Dose: 1 lozenge Bisacodyl (Bisacodyl 10 Mg Supp.Rect) 10 mg HI ONCE ONE Stop: 08/08/24 08:48 Clonidine HCl (Clonidine Hcl 0.1 Mg Tablet) 0.3 mg PO DAILY@2130 [facility]; Protocol Last Admin: 08/07/24 20:33 Dose: 0.3 mg Clonidine HCl (Clonidine Hcl 0.1 Mg Tablet) 0.15 mg PO BID@0900,1500 [facility]; Protocol Last Admin: 08/07/24 15:43 Dose: 0.15 mg Docusate Sodium (Docusate Sodium 100 Mg Capsule) 200 mg PO BEDTIME [facility] Last Admin: 08/07/24 20:34 Dose: 200 mg Docusate Sodium (Docusate Sodium 100 Mg Capsule) 200 mg PO DAILY PRN PRN Reason: Constipation Last Admin: 08/07/24 17:39 Dose: 200 mg Fluoxetine HCl (Fluoxetine Hcl 20 Mg Capsule) 40 mg PO DAILY [facility] Last Admin: 08/07/24 08:08 Dose: 40 mg Gabapentin (Gabapentin 400 Mg Capsule) 800 mg PO TID [facility] Last Admin: 08/07/24 20:35 Dose: 800 mg Hydroxyzine HCl (Hydroxyzine Hcl 25 Mg Tablet) 25 mg PO Q6H PRN PRN Reason: Anxiety Last Admin: 07/29/24 05:04 Dose: 25 mg Hydroxyzine HCl (Hydroxyzine Hcl 50 Mg Tablet) 50 mg PO TID [facility] Last Admin: 08/07/24 20:35 Dose: 50 mg Ibuprofen (Ibuprofen 800 Mg Tablet) 800 mg PO Q4H PRN PRN Reason: Pain (Scale Score 7-10) Last Admin: 08/07/24 20:36 Dose: 800 mg Lidocaine (Lidocaine 4 % Patch Adh..Patch) 1 patch TRANSDERMA DAILY [facility]; Protocol Last Admin: 08/07/24 15:43 Dose: 1 patch Magnesium Hydroxide (Milk Of Magnesia 30 Ml Oral.Susp) 30 ml PO DAILY PRN PRN Reason: Constipation Methadone HCl (Methadone Hcl 20 Mg/2 Ml Oral.Conc) 120 mg PO DAILY [facility] Last Admin: 08/08/24 08:08 Dose: 120 mg Polyethylene Glycol (Polyethylene Glycol 3350 17 Gm Powd.Pack) 17 gm PO DAILY PRN PRN Reason: Constipation Last Admin: 08/07/24 20:35 Dose: 17 gm Saliva Substitute (Dry Mouth Ren[place] 60 Ml Ren[place]) 1 spray MUCOUS MEM Q2H PRN PRN Reason: dry mouth Last Admin: 08/07/24 20:38 Dose: 1 spray Sodium Chloride (Sodium Chloride 0.65 % Nasal 44 Ml Sprbtl) 1 spray NOSTRIL-B Q1H PRN PRN Reason: dry nares Trazodone HCl (Trazodone Hcl 50 Mg Tablet) 50 mg PO BEDTIME PRN PRN Reason: Insomnia Last Admin: 08/07/24 22:34 Dose: 50 mg Trazodone HCl (Trazodone Hcl 100 Mg Tablet) 100 mg PO BEDTIME [facility] Last Admin: 08/07/24 20:35 Dose: 100 mg Allergies Allergies Allergy/AdvReac Type Severity Reaction Status Date / Time No Known Allergies Allergy Unverified 03/08/20 19:21 [No Known Allergies*] Assessment & Plan Assessment & Plan (1) Right elbow pain: Status: Acute Code(s): M25.521 - Pain in right elbow Assessment and Plan: Clinical features are not suggestive of pain coming from ulnar nerve pathology, which she might have. Presentation of pain is suggestive more of tendinitis or tennis elbow type of pathology. Treatment is local heat application, avoidance of heavy physical activity, and p.r.n. anti-inflammatory agents. Otherwise an orthopedic consultation can also be obtained. (2) Cocaine use disorder: Status: Acute Code(s): F14.10 - Cocaine abuse, uncomplicated (3) Opioid use disorder: Status: Acute Code(s): F11.90 - Opioid use, unspecified, uncomplicated (4) PTSD (post-traumatic stress disorder): Status: Acute Code(s): F43.10 - Post-traumatic stress disorder, unspecified (5) HTN (hypertension): Status: Acute Code(s): I10 - Essential (primary) hypertension Plan 07/27: schedule clonidine and hydroxyzine, which were previously PRN only. add gabapentin 300 TID for neuropathic pain. otherwise restart/continue previous outpt regimen. 07/28: start abilify 2 mg daily for mood stabilization and depression. increase to 5 mg daily if tolerated. T/C increasing prozac to 40 mg daily once tolerability of abilify is established. also T/C increasing gabapentin dosing for neuropathic right arm pain. 07/29: improving affect. c/o ulnar tunnel syndrome pain. neuro consult for mgmt and increase gabapentin to 600 TID. increase abilify to 4 mg today and 5 mg tomorrow for mood. 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 08/01: feeling wrongly assessed by neuro. agreeable to increase gabapentin to 800 TID for pain and anxiety. also c/o insomnia and nightmares, agreeable to increase clonidine to 0.2 mg at HS. otherwise continue current mgmt. appreciate neuro input. 08/02: moderate pain improvement, improved anxiety. slept well for the first time in a long time per her report. agreeable to increase trazodone to 100, which is the dose she's had in the past. also asking to increase prozac, changed to 40 for tomorrow. otherwise continue current mgmt. 08/03: slept well again, arm pain lessened. awaiting word from [facility]. continue current mgmt. 08/04: pt's insurance apparently does not cover CSS; alternate dispo plan will need to be developed. clonidine at HS increased to 0.3 mg for nightmares and insomnia in PTSD. EKG WNL, no need for inpatient cardiology consult. continue current mgmt otherwise. 08/05: slept better, anxious during day. increase daytime clonidine to 0.15 BID. otherwise continue current mgmt. 08/06: Continue current regimen and plans 08/07: Continue current regimen and plans. 08/08: Continue current regimen and plans Patient educated on: medication risk/benefits Reason for continued inpatient stay Substantial Risk for: med/psych decompensation Time Spent With Patient Time: Total time managing care of this patient today ____ minutes.
[2024-08-08] MEDS: cloNIDine HCL 0.1 MG TABLET 0.15 MG PO ×2 (08:49→14:34)
[2024-08-08] MEDS: FLUoxetine HCl 20 MG CAPSULE 40 MG PO (08:49)
[2024-08-08] MEDS: amLODIPine Besylate 5 MG TABLET PO (08:49)
[2024-08-08] MEDS: Ibuprofen 800 MG TABLET PO ×2 (10:55→22:46)
[2024-08-08] MEDS: bisacodyL 10 MG SUPP.RECT PR (14:34)
[2024-08-08 20:05] VITALS: BP 105/66; PULSE 66; RESP 16; TEMP 36.7; O2SAT 97
[2024-08-08] MEDS: cloNIDine HCL 0.1 MG TABLET 0.3 MG PO (20:56)
[2024-08-08] MEDS: traZODone HCL 100 MG TABLET PO (20:56)
[2024-08-08] MEDS: Dry Mouth Spray 60 ML SPRAY 1 SPRAY MUCOUS MEM (21:02)
[2024-08-08] MEDS: polyethylene glycoL 3350 17 GM POWD.PACK PO (22:46)
[2024-08-09] MEDS: traZODone HCL 50 MG TABLET PO (01:05)
[2024-08-09 07:54] VITALS: BP 145/86; PULSE 59; RESP 16; TEMP 36.8; O2SAT 98
[2024-08-09] MEDS: methADONE HCl 20 MG/2 ML ORAL.CONC 120 MG PO (08:10)
[2024-08-09] MEDS: FLUoxetine HCl 20 MG CAPSULE 40 MG PO (08:34)
[2024-08-09] MEDS: amLODIPine Besylate 5 MG TABLET PO (08:35)
[2024-08-09] MEDS: hydrOXYzine HCL 50 MG TABLET PO ×2 (08:35→20:23)
[2024-08-09] MEDS: Gabapentin 400 MG CAPSULE 800 MG PO ×3 (08:35→20:23)
[2024-08-09] MEDS: ARIPiprazole 5 MG TABLET PO (08:35)
[2024-08-09] MEDS: cloNIDine HCL 0.1 MG TABLET 0.15 MG PO ×2 (08:35→14:26)
[2024-08-09] MEDS: Lidocaine 4 % Patch ADH..PATCH 1 PATCH TRANSDERMA (08:37)
[2024-08-09] MEDS: Ibuprofen 800 MG TABLET PO ×2 (09:46→20:22)
[2024-08-09 11:15] VITALS: BP 133/76; PULSE 71
[2024-08-09] MEDS: Acetaminophen 325 MG TABLET 650 MG PO (11:41)
[2024-08-09] MEDS: Dry Mouth Spray 60 ML SPRAY 1 SPRAY MUCOUS MEM (11:41)
[2024-08-09 14:26] VITALS: BP 124/63
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
[2024-08-09 20:00] VITALS: BP 98/60; PULSE 65; RESP 16; TEMP 37.1; O2SAT 100
[2024-08-09] MEDS: Docusate Sodium 100 MG CAPSULE 200 MG PO (20:22)
[2024-08-09] MEDS: traZODone HCL 100 MG TABLET PO (20:23)
[2024-08-09] MEDS: cloNIDine HCL 0.1 MG TABLET 0.3 MG PO (20:23)
[2024-08-10] MEDS: hydrOXYzine HCL 25 MG TABLET PO (03:30)
[2024-08-10] MEDS: methADONE HCl 20 MG/2 ML ORAL.CONC 120 MG PO (07:38)
[2024-08-10 07:45] VITALS: BP 135/87; PULSE 61; RESP 18; TEMP 36.5; O2SAT 98
[2024-08-10] MEDS: Gabapentin 400 MG CAPSULE 800 MG PO (08:14)
[2024-08-10] MEDS: FLUoxetine HCl 20 MG CAPSULE 40 MG PO (08:15)
[2024-08-10] MEDS: cloNIDine HCL 0.1 MG TABLET 0.15 MG PO (08:16)
[2024-08-10] MEDS: amLODIPine Besylate 5 MG TABLET PO (08:18)
[2024-08-10] MEDS: ARIPiprazole 5 MG TABLET PO (08:18)
[2024-08-10] MEDS: Ibuprofen 800 MG TABLET PO (08:43)
[2024-08-10] MEDS: Lidocaine 4 % Patch ADH..PATCH 1 PATCH TRANSDERMA (09:42)
[2024-08-10] MEDS: Dry Mouth Spray 60 ML SPRAY 1 SPRAY MUCOUS MEM (10:08)
[2024-08-10] MEDS: Acetaminophen 325 MG TABLET 650 MG PO (10:50)
== END 2024-08-10 12:25 | disposition home or self-care (01) | DRG 755 ==
PROVIDERS: Psychiatry & Neurology Psychiatry; Admitting Provider Registered Nurse; Visit Provider Psychiatry & Neurology Psychiatry
DX: F43.10 Post-traumatic stress disorder, unspecified (principal); F11.20 Opioid dependence, uncomplicated; F17.210 Nicotine dependence, cigarettes, uncomplicated; F14.10 Cocaine abuse, uncomplicated; I10 Essential (primary) hypertension; G58.8 Other specified mononeuropathies; Z23 Encounter for immunization; Z71.6 Tobacco abuse counseling; Z79.899 Other long term (current) drug therapy
CPT/HCPCS: 36415; 80053; 80061; 90656; 93005

== ENCOUNTER 2024-07-26 16:28 | Outpatient (BNV) | payer OTHER, SELFPAY | END 2024-08-04 12:24 | PROVIDERS: Admitting Provider Registered Nurse; Visit Provider Internal Medicine Cardiovascular Disease | DX: Z13.6 Encounter for screening for cardiovascular disorders (principal) | CPT/HCPCS: 93010 ==

== ENCOUNTER → 2024-07-26 16:28 | Outpatient (BNV) | payer OTHER, SELFPAY | PROVIDERS: Admitting Provider Registered Nurse; Visit Provider Psychiatry & Neurology Psychiatry | DX: F14.10 Cocaine abuse, uncomplicated (principal); F11.90 Opioid use, unspecified, uncomplicated; F43.11 Post-traumatic stress disorder, acute; M25.521 Pain in right elbow; I10 Essential (primary) hypertension | CPT/HCPCS: 99232; 99233 ==

== ENCOUNTER → 2024-07-26 16:28 | Outpatient (BNV) | payer OTHER, SELFPAY | PROVIDERS: Admitting Provider Registered Nurse; Visit Provider Psychiatry & Neurology Neurology | DX: M25.521 Pain in right elbow (principal) | CPT/HCPCS: 99222 ==

== ENCOUNTER → 2024-07-26 16:28 | Outpatient (BNV) | payer OTHER, SELFPAY | PROVIDERS: Admitting Provider Registered Nurse; Visit Provider Student in an Organized Health Care Education/Training Program | DX: I10 Essential (primary) hypertension (principal); S54.01XA Injury of ulnar nerve at forearm level, right arm, initial encounter | CPT/HCPCS: 99222 ==

== ENCOUNTER 2024-12-02 21:52 | Emergency (ER) | payer OTHER, SELFPAY ==
[2024-12-02 22:03] VITALS: BP 106/73; PULSE 75; RESP 16; TEMP 36.8; O2SAT 97; BMI 27.7
[2024-12-03 00:46] VITALS: BP 96/70; PULSE 64; RESP 16; O2SAT 97
--- NOTE | 2024-12-03 00:54 | ED.GENADULT ---
HPI - General Adult General Chief complaint: General Medical Stated complaint: fecal incontinence 2days Time Seen by Provider: 12/03/24 00:26 History of Present Illness ED Provider: Stan Lemons MD HPI narrative: 44-year-old female history of methadone maintenance, remote C diff, chronic constipation on MiraLax for about a week now who presents with 2 days intermittent soft/loose stool abruptly and feeling incontinent without urge. No abdominal pain no rectal or anal pain. Denies sensory changes in the perineal region or legs. No history of spine surgeries back surgeries, spinal epidural abscess she denies any numbness tingling weakness in the extremities. She is no urinary symptoms including no urinary incontinence. Related Data Home Medications ?Medication ?Instructions ?Recorded ?Confirmed methadone 120 mg PO DAILY 07/26/24 07/26/24 Previous Rx's ?Medication ?Instructions ?Recorded amlodipine 5 mg tablet 5 mg PO DAILY 30 days #30 tabs 08/09/24 aripiprazole 5 mg tablet (Abilify) 5 mg PO DAILY 30 days #30 tabs 08/09/24 clonidine HCl 0.1 mg tablet See Rx Instructions .Route 08/09/24 .COMPLEX 30 days #180 tabs docusate sodium 100 mg capsule 200 mg (2 x 100 mg) PO BEDTIME 30 08/09/24 days #60 caps fluoxetine 20 mg capsule 40 mg (2 x 20 mg) PO DAILY 30 days 08/09/24 #60 caps gabapentin 400 mg capsule 800 mg (2 x 400 mg) PO TID 30 days 08/09/24 #180 caps hydroxyzine HCl 50 mg tablet 50 mg PO TID PRN anxiety 30 days 08/09/24 #90 tabs ibuprofen 800 mg tablet 800 mg PO Q4H PRN Pain (Scale 08/09/24 Score 7-10) 30 days #120 tabs lidocaine 4 % topical patch 1 patch transdermal DAILY 30 days 08/09/24 (Lidocaine Pain Relief) #30 ea naloxone 4 mg/actuation nasal 4 mg intranasal Q2M PRN opioid 08/09/24 spray (Narcan) overdose 1 day #2 ea polyethylene glycol 3350 17 gram 17 g PO DAILY PRN Constipation 30 08/09/24 oral powder packet (Miralax) days #30 ea trazodone 100 mg tablet 100 mg PO BEDTIME 30 days #30 tabs 08/09/24 xylitol-yerba riddhi mucosal spray 1 spray mucous membrane Q2H PRN 08/09/24 with pump (MouthKote Greene) dry mouth 30 days #236 mL Allergies Allergy/AdvReac Type Severity Reaction Status Date / Time No Known Allergies (No Known Allergy Verified 12/02/24 22:03 Allergies*) [facility] Past Medical History Medical History (Updated 12/04/24 @ 00:01 by Laura Carbajal) HTN (hypertension) Social History Social History Household Members: None Housing: Homeless Do you presently have visiting nurse or other home services: No Alcohol intake: never Patient Tobacco Use Status: Current everyday Tobacco user Tobacco use type: Smokeless Tobacco Smoked in Last 30 Days: No e-Cigarette/Vaping Use: Currently Using Second Hand Smoke Exposure: Yes (people smoking around her) Use of substances other than those prescribed or required for medical reasons: No Substance Use Type: Crack/Cocaine and Marijuana Advance Directives: No Advance Directives Information Provided: Yes Patient : No service: No Sexual orientation: Straight/Heterosexual Physical Exam ED Vital Signs: Vital Signs - 24 hr 12/02/24 22:03 12/03/24 00:46 Temperature 98.3 F Pulse Rate 75 64 Respiratory Rate 16 16 Blood Pressure 106/73 96/70 Pulse Oximetry 97 97 Oxygen Delivery Method Room Air Room Air BMI result Body Mass Index 27.7 Const Other: EXAM: Gen: Alert, awake, well appearing, well hydrated. Occasionally sleepy but easily arousable Head: Atraumatic Eyes: Anicteric, Normal conjunctiva. ENT: Moist mucosa, no pallor. ? Neck: Supple. Skin: ?No observable rash or bruising on exposed or examined skin Respiratory: Breathing comfortably, No distress.Clear to auscultation bilaterally, symmetric chest expansion, No wheeze, rales, ronchi. Cardiovascular: Regular rate and rhythm. No murmurs or rub. Well perfused periphery, warm extremities. No edema. ? Abdominal: No FOCAL TENDERNESS. Soft, no objective distension. No palpable masses or obvious organomegaly. ?No guarding, no rebound tenderness or other peritoneal findings. : No flank tenderness. Rectal performed with Eun GARDNER quality control engineer at the bedside. Patient has intact normal rectal tone with loose light brown stool no blood no masses no lesions. She is sensation around the anus. Neuro: Alert. Gross movement of all extremities intact. ?5/5 strength proximal and distal bilateral lower extremities sensation intact grossly to light touch. Psych: Calm. Cooperative. MSK: No grossly visible deformity. Vital signs: See flowsheet Medical Decision Making Medical Decision Making MDM Narrative: 44-year-old female with subjective loose/soft stool after week of MiraLax feeling subjectively incontinent. She has no fever no back pain tenderness no current IV drug use we did of course considered possibility of nerve compressive lesion including spinal epidural abscess however given the patient's presentation lack of fever as well as the reassuring normal rectal exam, sphincter tone, postvoid residual and motor exam of the legs this was highly unlikely although I did tell her if she remains incontinent or had any development of red flag signs or symptoms to return immediately back to the emergency department. More likely this is laxative induced loose stool with diarrhea. There was no significant malodor abdominal pain or recent antibiotic use to suggest C diff. Signed out at the end of my shift for Dr. Harris to follow the patient urinating Dr. Harris: patient was able to urinate without any intervention. Patient rcvd bladder scan right after urinating, there was no detectable amount of urine in the bladder. Discharge Plan Discharge Clinical Impression: Diarrhea due to laxative abuse Patient Disposition: Home, Self-Care Instructions: Acute Diarrhea (ED) Additional Instructions: DISCHARGE DIAGNOSES: Soft stool with subjective fecal incontinence likely due to laxative use HISTORY OF PRESENTATION: ?2 days of subjective fecal incontinence EMERGENCY DEPARTMENT COURSE,TESTS, TREATMENTS: While in the ED today we checked your rectal tone which is normal. You had a normal reassuring neurologic exam he will or extremities no back pain no fever or other suggestion of compression of your spinal cord or nerves as a cause of this. DISCHARGE MEDICATIONS: ?[We have made no changes to your regular medication regimen] stop taking laxatives for now FOLLOW-UP: ?Call your primary or general physician soon as possible to discuss your symptoms, your ED visit and to discuss follow up plans Call your primary doctor for follow up INSTRUCTIONS ?& RETURN PRECAUTIONS: If any symptoms change first call your primary physician, if it is after-hours your primary doctors office should have a provider manager organizational you can speak with. If the symptoms are severe or very concerning to you then call 911 or return to the ED. As we discussed if you develop any concerning or worsening signs to suggest neurologic incontinence including inability to continue your urine, weakness numbness tingling of the legs or perineal region return back for evaluation Stan Lemons MD Emergency Physician [facility] Prescriptions: No Action methadone liquid 120 mg PO DAILY Patient Comments: Verified during nurse to nurse with [facility] DEL[facility] CRU[facility] clonidine HCl 0.1 mg Tablet See Rx Instructions .ROUTE .COMPLEX 30 Days Qty: 180 0RF Protocol: Hold for SBP< HOLD for SBP < : 90 Rx Instructions: take one and one half tabs (0.15 mg) twice daily at 0900 and 1500; and take three tabs (0.3 mg) at bedtime. ibuprofen 800 mg Tablet 800 mg PO Q4H PRN (Reason: Pain (Scale Score 7-10)) 30 Days Qty: 120 0RF gabapentin 400 mg Capsule 800 mg PO TID 30 Days Qty: 180 0RF hydroxyzine HCl 50 mg Tablet 50 mg PO TID PRN (Reason: anxiety) 30 Days Qty: 90 0RF trazodone 100 mg Tablet 100 mg PO BEDTIME 30 Days Qty: 30 0RF docusate sodium 100 mg Capsule 200 mg PO BEDTIME 30 Days Qty: 60 0RF fluoxetine 20 mg Capsule 40 mg PO DAILY 30 Days Qty: 60 0RF aripiprazole [Abilify] 5 mg Tablet 5 mg PO DAILY 30 Days Qty: 30 0RF MouthKote Greene With Pump 1 spray mucous membrane Q2H PRN (Reason: dry mouth) 30 Days Qty: 236 0RF lidocaine [Lidocaine Pain Relief] 4 % Adhesive Patch,Medicated 1 patch transdermal DAILY 30 Days Qty: 30 0RF Protocol: Apply to: Apply to: right arm polyethylene glycol 3350 [Miralax] 17 gram Powder In Packet 17 g PO DAILY PRN (Reason: Constipation) 30 Days Qty: 30 0RF amlodipine 5 mg Tablet 5 mg PO DAILY 30 Days Qty: 30 0RF naloxone [Narcan] 4 mg/actuation spray,non-aerosol 4 mg intranasal Q2M PRN (Reason: opioid overdose) 1 Days Qty: 2 0RF Rx Instructions: spray 1 dose into ONE nostril; alternate nostrils w each dose until help arrives Stand Alone Forms: Work/School Release Interventions: ED Discharge Assessment Last Done: 12/03/24 03:24 Discharge Date/Time: 12/03/24 02:50 Print Language: Czech
--- OUTSIDE RECORDS SUMMARY | 2024-12-03 02:42 | XMS_ITS | Clinical Summary ---
Author Organization [facility] Address [address] [place] [address] Phone Care Team Providers Care Rn Stars Name Role Phone Physician, No Pcp Primary Care Provider Unavaila ble Allergies No known active allergies Medications polyethylene glycol (GoLYTELY) 236-22.74-6.74 -5.86 gram solution Drink 8 ounces every 20 minutes until you have a bowel movement then stop 4000 mL 05/30/2024 Active psyllium (METAMUCIL) 3.4 gram packet Take 1 packet by mouth 1 (one) time each day. 30 packet 05/30/2024 05/30/20 25 Active methadone (DOLOPHINE) 10 mg tabletIndicatio ns:opioid use disorder Take 120 mg by mouth [...] 50 to 100 mg prn 07/20/2024 Active Medical History Medical History Date Comments Hypertension Social History Tobacco Use Types Packs/Day Years Used Date Smoking Tobacco: Never Assessed Comments Unknown Sex and Gender Information Value Date Recorded Sex Assigned at Female 07/25/2024 8:22 PM EST Legal Sex Female 3:31 PM EST Gender Identity Female 07/25/2024 8:22 PM EST Sexual Orientation Straight 07/25/2024 8: 22 PM EST Obstetrics History Last Filed Vital Signs Vital [...] Depression Screening 01/23/2023 01/23/2022 COVID-19 Vaccine ( - season) 2024 06/11/2022, 03/27/2021 Influenza Vaccine (Season Ended) 2025 04/20/2020 Hypertension/CHF/CAD Annual BMP Blood Test 07/26/2025 [...] patient's age to complete this topic Meningococcal B Vaccine Aged Out No l onger eligible based on patient's age to complete this topic RSV Immunization Patients Under 20 months Aged Out No longer eligible based on patient's age to complete this topic Varicella Vaccines Aged Out No longer eligible based on patient's age to complete this topic Procedures Procedure Name Priority Date/Time Associated Diagnosis Comments BASIC METABOLIC PANEL STAT 07/26/2024 1:36 PM EST from Last 3 Months or Most Recently Relevant to Health Maintenance Results * (ABNORMAL) Basic metabolic panel (07/26/2024 1:36 PM EST) Sodium 135 133 - 145 mmol/L LAB CHEMISTRY METHOD 07/26/2024 2:33 PM [facility] Potassium 3.9 3.5 - 5.5 mmol/L LAB CHEMISTRY METHOD 07/26/2024 2:33 PM [facility] Chloride 103 96 - 110 mmol/L LAB CHEMISTRY METHOD 07/26/2024 2:33 PM [facility] CO2 24 21 - 32 mmol/L LAB CHEMISTRY METHOD 07/26/2024 2:33 PM [facility] Anion Gap 8 3 - 11 LAB CHEMISTRY METHOD 07/26/2024 2:33 PM [facility] Glucose 145(H) 70 - 100 mg/dL LAB CHEMISTRY METHOD 07/26/2024 2:33 PM [facility] BUN 14 5 - 25 mg/dL LAB CHEMISTRY METHOD 07/26/2024 2:33 PM EST [facility] Creatinine 0.72 0.50 - 1.10 mg/dL LAB CHEMISTRY METHOD 07/26/2024 2:33 PM EST [facility] eGFR 108 >=60 mL/min/1. 73m2 LAB CHEMISTRY METHOD 07/26/2024 2:33 PM EST [facility] Comment:Calculation based on the??Chronic Kidney Disease Epidemiology Collaboration (CKD-EPI) equation refit??without adjustment for race. BUN/Creatinine Ratio 19.4 LAB CHEMISTRY METHOD 07/26/2024 2:33 PM EST [facility] Calcium 9.6 8.5 - 10.5 mg/dL LAB CHEMISTRY METHOD 07/26/2024 2:33 PM [facility] Blood Venous blood specimen / Unknown Venipuncture / Unknown 07/26/2024 1:36 PM EST 07/26/2024 1:55 PM EST us Ayaz Posada MD LAB BLOOD ORDERABLES Final Resu lt [facility] [address] [place] [address], from Last 3 Months or Most Recently Relevant to Health Maintenance Insurance [facility] MEDICAID ADVANTAGE Advance Directives Documents on File Type Date Recorded Patient Mold Laminator Expl anation Advance Directives and Livin g Will 05/31/2024 2:33 PM Care Teams Rn Stars Relationship Specialty Start Date End Date Physician, No Pcp PCP - General 07/25/24
[2024-12-03 02:44] VITALS: BP 110/81; PULSE 58; RESP 14; TEMP 36.6; O2SAT 98
[2024-12-03 03:24] VITALS: BP 110/81; PULSE 58; RESP 14; TEMP 36.6; O2SAT 98
== END 2024-12-03 02:50 | disposition home or self-care (01) ==
PROVIDERS: Emergency Provider Emergency Medicine
DX: R19.7 Diarrhea, unspecified (principal); F55.2 Abuse of laxatives; I10 Essential (primary) hypertension; F43.10 Post-traumatic stress disorder, unspecified; F14.10 Cocaine abuse, uncomplicated; F11.20 Opioid dependence, uncomplicated; Z79.899 Other long term (current) drug therapy
CPT/HCPCS: 99282; 99284